=== PATIENT | female | born 1975 | race Caucasian/White ===

== ENCOUNTER 2019-09-15 07:44 | Outpatient (CLI) | payer BC, SELFPAY ==
--- NOTE | ~2019-09-15 | XR_ITS ---
EXAMINATION: XR chest 2V DATE: 09/15/2019 08:01 INDICATION: Encounter for screening for respiratory tuberculosis TECHNIQUE: PA and lateral views of the chest are obtained. COMPARISON: None available FINDINGS: The lungs are free of acute opacities. There is no pleural effusion or pneumothorax. The ca rdiomediastinal silhouette is normal. The visualized bones and soft tissues are unremarkable. IMPRESSION: 1. No acute cardiopulmonary abnormality. Reviewed, dictated and finalized at location A.
== END 2019-09-15 07:45 | disposition home or self-care (01) ==
PROVIDERS: PCP Family Medicine; Visit Provider Family Medicine
DX: Z11.1 Encounter for screening for respiratory tuberculosis (principal)
CPT/HCPCS: 71046

== ENCOUNTER 2019-10-20 10:47 | Emergency (ER) | payer BC, SELFPAY ==
--- NOTE | ~2019-10-20 | XR_ITS ---
XR_[id number]_CR DATE: 10/20/2019 11:36 INDICATION: Neck pain; vacuum parts cleaner fell on neck last night. TECHNIQUE: AP, open-mouth, lateral views COMPARISON: None FINDINGS: There is reversal of cervical curvature. There is approximately 1 mm anterolisthesis at C5-6. No fracture or dislocation or locked facet or prevertebral soft tissue swelling. The cervical intersp aces are preserved. IMPRESSION: Reversal of cervical curvature. Approximately 1 mm anterolisthesis at C5-6 Reviewed, dictated and finalized at Location A. Reviewed, dictated and finalized at location A.
[2019-10-20 10:56] VITALS: BP 141/70; PULSE 100; RESP 20; TEMP 36.6; O2SAT 100
--- NOTE | 2019-10-20 11:11 | ED.GENADULT ---
HPI - General Adult General Chief complaint: Neck Pain/Injury Stated complaint: neck injury Time Seen by Provider: 10/20/19 11:11 Source: patient and RN notes reviewed Mode of arrival: ambulatory Limitations: no limitations History of Present Illness HPI narrative: 43-year-old female presents with complaints of mid-posterior neck for 1 day. Ashley says she was on the floor vacuuming when the vacuum fell on top of her hitting her upper back and neck. 60mg of injectable Tordayl on 10/19/19, 800mg of Advil this morning at 06:00 and 2,000mg of ES Tylenol this morning at 10:00 without relief. Says she called her PMD and was instructed to seek care at Urgent Care. No headache or numbness or weakness in the arms/upper extremities. Denies numbness or tingling. Denies pain with movement of shoulder. Pain radiates from mid-posterior neck to upper-mid back. No loss of mobility. No swelling. Relieving factor is rest. The dominant hand is the RIGHT HAND. LMP hysterectomy. The patient reports she have not been diagnosed with COVID-19. The patient reports she is not waiting for the results of a COVID-19 lab test. The patient reports she do not have fever, chills, weakness, or fatigue. The patient reports she do not have a new or worsening cough or shortness of breath. Denies chest pain. The patient reports she do not have any rhinorrhea, congestion, sore throat, nausea, vomiting, abdominal pain, and diarrhea. Tolerating po intake well. Denies recent traveling. Denies concerns for COVID-19 or exposures been home with limited outdoor exposure except for essential household needs, work, and return home. At this time, patient is not suspected of having COVID-19. Some parts of this dictation were generated by voice recognition software and may contain typographical and/or grammatical inaccuracies. Related Data Home Medications Medication Instructions Recorded Confirmed alprazolam 1 mg tablet 1 mg PO TID PRN 01/27/19 10/20/19 cholecalciferol (vitamin D3) 25 1,000 unit PO DAILY 06/22/19 10/20/19 mcg (1,000 unit) capsule ketorolac 60 mg/2 mL intramuscular 60 mg IM ONCE PRN 04/28/20 08/11/20 solution aripiprazole 15 mg tablet 15 mg PO . q.h.s. tablet 09/01/19 10/20/19 clonazepam 1 mg tablet 1 mg PO . q.h.s. PRN tablet 09/01/19 10/20/19 duloxetine 30 mg capsule,delayed 30 mg PO . each noon cap 09/01/19 10/20/19 release bupropion HCl 150 mg PO DAILY 10/20/19 10/20/19 Allergies Allergy/AdvReac Type Severity Reaction Status Date / Time erythromycin base Allergy Unknown Hives Verified 12/03/18 13:32 MACROLIDES Allergy Unknown Uncoded 06/23/08 12:36 Review of Systems Review of Systems: Narrative: CONSTITUTIONAL: Denies fever, chills, sweats. EYES: Denies visual changes, redness, discharge. ENT: Denies rhinorrhea, congestion, sore throat, otalgia. CARDIOVASCULAR: Denies chest pain, palpitations, edema. RESPIRATORY: Denies dyspnea, wheezing, cough. GASTROINTESTINAL: Denies abdominal pain, nausea, vomiting, diarrhea. GENITOURINARY: Denies dysuria, hematuria, abnormal discharge SKIN: Denies rash or itching. MUSCULOSKELETAL: Denies acute back pain or myalgia. Complains of mid-posterior neck pain. NEUROLOGIC: Denies numbness, or focal weakness. PSYCHIATRIC: Denies anxiety or depression. All other systems reviewed are negative except as documented in HPI and below. [facility] Past Medical History Medical History (Updated 10/20/19 @ 11:39 by NATHAN Angeles) delivery delivered Chronic anxiety Chronic depression Chronic fatigue syndrome Chronic right hip pain Iron deficiency anemia, unspecified Migraine with aura, not intractable, without status migrainosus Nausea Other chronic pain Screening for tuberculosis UTI (urinary tract infection) Surgical History Surgical History (Updated 10/20/19 @ 11:39 by NATHAN Angeles) H/O section X3 History of cholecystectomy History of hysterectomy History
== END 2019-10-20 11:49 | disposition home or self-care (01) ==
PROVIDERS: Emergency Provider Nurse Practitioner Family; PCP Family Medicine
DX: S13.9XXA Sprain of joints and ligaments of unspecified parts of neck, initial encounter (principal); W20.8XXA Other cause of strike by thrown, projected or falling object, initial encounter; F41.9 Anxiety disorder, unspecified
CPT/HCPCS: 72040; 99213; G0463

== ENCOUNTER 2019-12-05 08:22 | Emergency (ER) | payer BC, SELFPAY ==
--- NOTE | ~2019-12-05 | CT_ITS ---
EXAMINATION: CT BRAIN W/O DATE: 12/05/2019 09:40 INDICATION: Seizure. Patient found unresponsive. TECHNIQUE: Computed tomography (CT) of the head was performed without intravenous contrast. The dose- length product was 605.33 mGy-cm. Automated exposure control and iterative reconstruction technique w ere employed. COMPARISON: No prior studies for comparison. FINDINGS: Normal brain parenchymal volume for age. Normal -white differentiation. There is a smal l subarachnoid hemorrhage at the right parietal vertex. No ventriculomegaly or midline shift. There i s a right parietal scalp hematoma. No ventriculomegaly or midline shift. Midline sagittal images demonstrate a normal corpus callosum, c raniovertebral junction and sella turcica. Basilar cisterns are patent. Paranasal sinuses and mastoids are pneumatized. No depressed skull fractures. IMPRESSION: 1. Small subarachnoid hemorrhage right parietal vertex. Dr. Jenkins discussed with Dr. Fili Bah MD at 12/05/2019 09:55 CDT. Reviewed, dictated and finalized at location A.
[2019-12-05 08:28] VITALS: BP 131/86; PULSE 93; RESP 20; TEMP 36.4; O2SAT 99
--- NOTE | 2019-12-05 08:36 | ECG_ITS ---
Measurements Intervals [place] Rate: 90 P: 28 NH: 133 QRS: 17 QRSD: 90 T: 15 QT: 362 QTc: 444 Interpretive Statements SINUS RHYTHM VENTRICULAR PREMATURE COMPLEX BASELINE ARTIFACT- I, II, III, AVR, AVL, AVF, V1 BORDERLINE ECG Electronically Signed On 12-05-2019 10:53:12 CDT by Jt De Leon D.O.
--- NOTE | 2019-12-05 08:48 | ED.GENADULT ---
HPI - General Adult General Chief complaint: Unspecified Stated complaint: found unresponsive Time Seen by Provider: 12/05/19 08:37 Source: patient Mode of arrival: EMS Limitations: no limitations History of Present Illness HPI narrative: Patient is a 43-year-old female who was brought in by EMS secondary to syncope/seizure. Patient states she has history of gastric bypass and hypoglycemia due to it, so every time her blood sugar goes down she has had a seizure. Patient states that she is only had 2 seizures for the past 2 years and was attributed to hypoglycemia. Patient does not take anything for seizure since is only attributed to hypoglycemia due to her gastric bypass. Patient is back to baseline and has no complaints. Patient denies headache dizziness neck pain chest pain abdominal pain back pain nausea vomiting diarrhea or fever. Patient denies any visual or speech disturbance, weakness, numbness, unsteady gait. Related Data Home Medications Medication Instructions Recorded Confirmed alprazolam 1 mg tablet 1 mg PO TID PRN 01/27/19 10/20/19 cholecalciferol (vitamin D3) 25 1,000 unit PO DAILY 06/22/19 10/20/19 mcg (1,000 unit) capsule ketorolac 60 mg/2 mL intramuscular 60 mg IM ONCE PRN 07/07/19 10/20/19 solution aripiprazole 15 mg tablet 15 mg PO . q.h.s. tablet 09/01/19 10/20/19 clonazepam 1 mg tablet 1 mg PO . q.h.s. PRN tablet 09/01/19 10/20/19 duloxetine 30 mg capsule,delayed 30 mg PO . each noon cap 09/01/19 10/20/19 release bupropion HCl 150 mg PO DAILY 10/20/19 10/20/19 Allergies Allergy/AdvReac Type Severity Reaction Status Date / Time erythromycin base Allergy Unknown Hives Verified 12/05/19 08:38 Macrolide Antibiotics Allergy Unknown Verified 12/05/19 10:49 Review of Systems Review of Systems: All systems reviewed & are unremarkable except as noted in HPI and below Constitutional: Constitutional: Denies body ache(s), Denies chills, Denies excessive sweating, Denies fatigue, Denies fever(s), Denies headache(s), Denies lethargy, Denies malaise, Denies weakness and Denies weight loss Eyes: Eyes: Denies blurry vision, Denies change in vision and Denies loss of vision ENT: Denies dizziness, Denies ear discharge, Denies headache(s), Denies lip swelling, Denies epistaxis, Denies nasal congestion, Denies neck pain, Denies throat swelling and Denies tongue swelling Cardiovascular: Cardiovascular: Denies chest pain, Denies chest pain at rest, Denies chest pain with activity, Denies diaphoresis, Denies rapid heart rate, Denies edema, Denies irregular heart rhythm, Denies lightheadedness, Denies palpitations, Denies dyspnea and Denies dyspnea on exertion Respiratory: Respiratory: Denies chest congestion, Denies cough, Denies hemoptysis, Denies dyspnea and Denies dyspnea on exertion Gastrointestinal: Gastrointestinal: Denies abdominal pain, Denies melena, Denies hematochezia, Denies diarrhea, Denies nausea, Denies vomiting and Denies hematemesis Musculoskeletal: Musculoskeletal: Denies abnormal gait, Denies deformity, Denies joint swelling, Denies limited range of motion, Denies neck pain and Denies numbness Neurologic: Denies Abnormal speech present, Denies abnormal gait, Denies confusion, Denies dizziness, Denies headache(s), Denies focal weakness, Denies loss of vision, Denies numbness, Denies Other visual disturbances, Denies Sensory deficit (Neuro) and Denies weakness Psychiatric: Psychiatric: Denies confusion, Denies depression, Denies auditory hallucinations, Denies homicidal ideation and Denies suicidal ideation Endocrine: Endocrine: Denies cold intolerance, Denies excessive sweating, Denies fatigue, Denies heat intolerance and Denies palpitations Hematologic/Lymphatic: Hematologic/Lymphatic: Denies easy bleeding and Denies easy bruising Allergic/Immunologic: Allergic/Immunologic: Denies lip swelling, Denies throat swelling and Denies tongue swelling PMF Past Medical History Medical History (Updated
[2019-12-05 09:08] LABS: Basophils Absolute Auto 0.1 K/mm3 (0.0-0.1); Basophils Percent Auto 0.8 % (0.2-1.2); Eosinophils Absolute Auto 0.3 K/mm3 (0-0.3); Eosinophils Percent Auto 3.4 % (0-4.4); Hematocrit 36.6 % (37.0-47.0); Hemoglobin 11.5 g/dL (12.0-15.0); Immature Granulocyte Absolute 0.04 K/mm3 (0.00-0.031); Immature Granulocyte Percent A 0.5 % (0-0.5); Lymphocytes Absolute Auto 1.58 K/mm3 (0.9-3.2); Lymphocytes Percent Auto 18.4 % (18.3-44.2); Mean Corpuscular HGB Conc 31.4 g/dl (32-36); Mean Corpuscular Hemoglobin 30.3 pg (26-34); Mean Corpuscular Volume 96.6 fl (80-100); Mean Platelet Volume 9.3 fl (7.4-10.4); Monocytes Absolute Auto 0.5 K/mm3 (0.1-0.6); Monocytes Percent Auto 5.7 % (2.6-8.5); Neutrophils Absolute Auto 6.1 K/mm3 (1.3-6.7); Neutrophils Percent Auto 71.2 % (45.5-73.1); Platelet Count Result 346 k/mm3 (150-375); Red Blood Count 3.79 M/mm3 (4.2-5.4); Red Cell Distribution Width 13.1 % (11.5-14.5); White Blood Count 8.6 K/mm3 (4.5-10.0)
[2019-12-05 09:30] VITALS: BP 111/91; PULSE 74; RESP 20; O2SAT 100
[2019-12-05 09:35] LABS: Troponin I < 0.012 ng/mL (0.000-0.034)
[2019-12-05 09:47] LABS: Anion Gap 4 mmol/L (8-16); Blood Urea Nitrogen 10 mg/dL (7-17); Calcium 8.7 mg/dL (8.4-10.2); Carbon Dioxide 25 mmol/L (22-30); Chloride 108 mmol/L (98-107); Estimated CRCL calculation 103 ml/min; Estimated Glomerular Filt Rate > 60; Glucose 67 mg/dL (65-105); Potassium 4.2 mmol/L (3.4-5.0); Sodium 137 mmol/L (137-145)
[2019-12-05 09:57] VITALS: BP 122/79; PULSE 77; RESP 20; O2SAT 100
--- NOTE | 2019-12-05 10:47 | PC.NURSE ---
C-collar applied at this time per Dr. Bah orders. Pt tolerated well.
[2019-12-05 10:54] VITALS: BP 124/86; PULSE 98; RESP 20; O2SAT 100
--- NOTE | 2019-12-05 11:00 | PC.NURSE ---
REPORT GIVEN TO VIVIAN HERNANDES AT [facility]
--- NOTE | 2019-12-05 11:05 | PC.NURSE ---
[facility] declined transfer [facility] accepted ETA 45min Trip # [id number]
[2019-12-05] MEDS: HYDROmorphone HCL INJ (*CRX) 1 MG/ML SYR 0.5 MG IV PUSH (11:12)
[2019-12-05] MEDS: ONDANSETRON INJ 4 MG/2 ML VIAL IV PUSH (11:12)
[2019-12-05 11:16] VITALS: BP 116/80; PULSE 89; RESP 20; O2SAT 100
[2019-12-05 11:19] VITALS: BP 116/80; PULSE 79; RESP 20; O2SAT 100
== END 2019-12-05 11:32 | disposition short-term general hospital (02) ==
PROVIDERS: Emergency Provider Emergency Medicine; PCP Family Medicine
DX: I60.9 Nontraumatic subarachnoid hemorrhage, unspecified (principal); R56.9 Unspecified convulsions; Z98.84 Bariatric surgery status; F41.9 Anxiety disorder, unspecified; F32.9 Major depressive disorder, single episode, unspecified; R53.82 Chronic fatigue, unspecified; Z87.440 Personal history of urinary (tract) infections; Z87.891 Personal history of nicotine dependence
CPT/HCPCS: 36415; 70450; 80048; 84484; 85025; 93005; 96374; 96375; 99285; J1170; J2405

== ENCOUNTER 2020-08-16 07:26 | Outpatient (CLI) | payer BC, SELFPAY ==
--- NOTE | 2020-08-16 | ECHO_ITS ---
Patient Info Name: Ashley Sosa Age: 44 years : 1975 Gender: Female Ht: 64 in Wt: 220 lbs BSA: 2.17 m2 HR: 69 bpm Heart Rhythm: Sinus Rhythm Exam Date: 08/16/2020 9:50 AM Exam Location: [facility] Patient Status: Outpatient Admit Date: 08/16/2020 Staff Ordering Physician: Rashida Decker APRN Residential Insurance Inspector: ZOIE Attending Provider: Rashida Decker APRN Exam Type: CA echo doppler color flow Study Info Complete two-dimensional, color flow and Doppler transthoracic echocardiogram is performed. Summary 1. Complete two-dimensional, color flow and Doppler transthoracic echocardiogram is performed. 2. Left ventricular chamber dimension is normal. 3. Left ventricular systolic function is normal, estimated at 60-65%. 4. The left ventricular diastolic function is normal. 5. E/e' 7 is not elevated. 6. No pulmonary hypertension, estimated pulmonary arterial systolic pressure is 27 mmHg. 7. There is trace pulmonic regurgitation. Left Ventricle E/e' 7 is not elevated. Left ventricular chamber dimension is normal. Left ventricular systolic function is normal, estimated at 60-65%. The left ventricular diastolic function is normal. Right Ventricle Right ventricular chamber dimension is normal. Right ventricular systolic function is normal. Left Atria Left atrial chamber dimension is normal. Right Atria Right atrial chamber dimension is normal. Aortic Valve The aortic valve is trileaflet. There is no aortic valve stenosis. There is no aortic valve regurgitation. Pulmonic Valve There is trace pulmonic regurgitation. Mitral Valve There is no mitral valve stenosis. There is no mitral valve regurgitation. Tricuspid Valve There is no tricuspid valve regurgitation. No pulmonary hypertension, estimated pulmonary arterial systolic pressure is 27 mmHg. Pericardium/Pleural There is no pericardial effusion. Inferior Vena Cava Normal inferior vena cava with >50% collapse upon inspiration consistent with normal right atrial pressure, 5 mmHg. Aorta The aortic root size at the sinus of Valsalva is normal. Left Ventricular Outflow Tract Name Value Normal LVOT 2D LVOT Diameter 2.3 cm LVOT Doppler LVOT Peak Gradient 4 mmHg LVOT Mean Gradient 2 mmHg LVOT VTI 22 cm LVOT VTI/AV VTI Ratio 0.8 LVOT Stroke Volume 91 ml LVOT CO 18.3 l/min LVOT CI 8.5 l/min/m2 Pulmonic Valve Name Value Normal PV Doppler PV Peak Gradient 3 mmHg PV Regurgitation Doppler WV Peak End Diastolic Velocity 123 cm/s M
== END 2020-08-16 07:27 | disposition home or self-care (01) ==
PROVIDERS: PCP Family Medicine
DX: R94.31 Abnormal electrocardiogram [ECG] [EKG] (principal)
CPT/HCPCS: 93306

== ENCOUNTER 2020-10-04 12:51 | Outpatient (CLI) | payer BC, SELFPAY ==
--- NOTE | ~2020-10-04 | XR_ITS ---
EXAMINATION: XR chest 1V 10/04/2020 13:08 INDICATION: Screening for tuberculosis PROCEDURE: 2 view chest COMPARISON: 09/15/2019 FINDINGS: The lungs are clear. The cardiomediastinal silhouette is within normal limits. There are no pleural effusions. There is no pneumothorax suspected. IMPRESSION: 1: NO ACUTE CARDIOPULMONARY DISEASE. Reviewed, dictated and finalized at location A.
== END 2020-10-04 12:52 | disposition home or self-care (01) ==
PROVIDERS: PCP Family Medicine; Visit Provider Nurse Practitioner Family
DX: Z11.1 Encounter for screening for respiratory tuberculosis (principal)
CPT/HCPCS: 71045

== ENCOUNTER 2021-10-10 10:51 | Outpatient (CLI) | payer BC, SELFPAY ==
--- NOTE | ~2021-10-10 | XR_ITS ---
EXAMINATION: XR chest 1V 10/10/2021 11:09 INDICATION: Positive skin TB test. PROCEDURE: AP portable chest COMPARISON: 10/04/2020 FINDINGS: The lungs are clear. The cardiomediastinal silhouette is within normal limits. There are no pleural effusions. There is no pneumothorax suspected. IMPRESSION: 1: NO ACUTE CARDIOPULMONARY DISEASE. Reviewed, dictated and finalized at location A.
== END 2021-10-10 10:52 | disposition home or self-care (01) ==
LOC: ANHIMG 10:55
PROVIDERS: PCP Family Medicine; Visit Provider Nurse Practitioner Family
DX: Z11.1 Encounter for screening for respiratory tuberculosis (principal)
CPT/HCPCS: 71045

== ENCOUNTER → 2021-10-16 14:49 | Outpatient (CLI) | payer OTHER, BC, SELFPAY ==
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
== END ==
PROVIDERS: PCP Nurse Practitioner Family; Visit Provider Nurse Practitioner Family
DX: M25.551 Pain in right hip (principal)
CPT/HCPCS: 73502

== ENCOUNTER 2021-12-27 14:41 | Emergency (ER) | payer BC, SELFPAY ==
--- NOTE | ~2021-12-27 | XR_ITS ---
EXAMINATION: XR chest 2V DATE: 12/27/2021 15:23 INDICATION: Persistent cough TECHNIQUE: PA and lateral views of the chest are obtained. COMPARISON: 10/10/2021 FINDINGS: The lungs are free of acute opacities. No pleural effusion or pneumothorax. The cardiomedia stinal silhouette is normal. The visualized bones and soft tissues are unremarkable. IMPRESSION: 1. No acute cardiopulmonary abnormality. Reviewed, dictated and finalized at location A.
[2021-12-27 14:48] VITALS: BP 131/87; PULSE 97; RESP 17; TEMP 37; O2SAT 99
--- NOTE | 2021-12-27 14:59 | ED.URI ---
HPI - URI/Sore Throat General Chief Complaint: Upper Respiratory Infection Stated Complaint: Cough,Headache,Wheezing,Sore Throat Time Seen by Provider: 12/27/21 15:01 Source: patient, RN notes reviewed and old records reviewed Mode of arrival: ambulatory Limitations: no limitations History of Present Illness HPI Narrative: 46 year old female who presents to [facility] care with complaints of cough with some shortness of breath, throat feels raw,headache and chills. Patient reports that she had COVID 3 weeks ago and she did take Paxlovid and seemed to get better. Patient reports that she developed bronchitis and was placed on inhaler and Cefdinir about 10 days ago and she reports that she is still having cough with some wheezing if she gets to coughing hard. Patient states that she called her doctor and was told to come have flu and strep swabs done. Patient reports that she had fever of 102 F yesterday and took Tylenol, no fever noted today. Patient reports that she has been taking some Sudafed but not taking any antihistamines. MD elicited complaint: cough, sore throat and other (headache and chills) Pertinent past history: other (COVID 3 weeks ago.) Pain scale (0-10): 8 Treatments prior to arrival: acetaminophen, antibiotics (cefdinir has been on for 10 days one dose remains) and other (albuterol inhaler) Related Data Home Medications Medication Instructions Recorded Confirmed alprazolam 1 mg tablet (Xanax) 1 mg PO TID PRN anxiety 01/27/19 10/16/21 clonazepam 1 mg tablet (Klonopin) 1 mg PO . q.h.s. PRN insomnia 09/01/19 10/16/21 duloxetine 30 mg capsule,delayed 30 mg PO . each noon 09/01/19 10/16/21 release (Cymbalta) bupropion HCl 150 mg 24 hr tablet, 150 mg PO DAILY 10/20/19 10/16/21 extended release blood-glucose meter (OneTouch #1 ea 12/10/19 10/16/21 Verio Flex Meter) lancets 33 gauge (OneTouch Delica #100 ea 12/10/19 10/16/21 Plus Lancet) acarbose 25 mg tablet 25 mg PO TID 12/23/19 10/16/21 flash glucose sensor (FreeStyle #1 ea 02/23/20 10/16/21 Roseann 14 Day Sensor kit) aripiprazole 15 mg tablet (Abilify) 22.5 mg PO . q.h.s. 04/27/21 10/16/21 hyoscyamine sulfate 0.125 mg 0.125 mg PO QID PRN abdominal pain 07/26/21 10/16/21 tablet (Levsin) memantine [Namenda] PO 10/16/21 10/16/21 Allergies Allergy/AdvReac Type Severity Reaction Status Date / Time erythromycin base Allergy Unknown Hives Verified 12/27/21 15:00 Macrolide Antibiotics Allergy Unknown Shortness Verified 12/27/21 15:00 of breath Review of Systems Review of Systems: CONSTITUTIONAL: reports malaise, chills, sweats, or fever. EYES: Denies visual changes, redness, or discharge. ENT: Reports rhinorrhea, congestion, sinus pain, no otalgia and positive for sore throat. CARDIOVASCULAR: Denies chest pain, palpitations, or edema. RESPIRATORY: Reports cough.? with some reported dyspnea when coughing hard. GASTROINTESTINAL: Denies abdominal pain, nausea, vomiting, diarrhea SKIN: Denies rash or itching. MUSCULOSKELETAL: Denies myalgia. NEUROLOGIC: Denies headache. 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 Chronic fatigue syndrome Chronic low back pain without sciatica Chronic neck pain Chronic right hip pain COVID-19 (12/08/21) vaccinated with positive test 12/10/2021 Fall Hypoglycemia Insulin resistance Iron deficiency anemia, unspecified Iron 24 with 6% saturation and ferritin of 3 on 04/27/2021 with hemoglobin 10.9, followed by [facility] department with iron infusions. Knee pain, right Migraine with aura, not intractable, without status migrainosus Nausea Obesity (BMI 30.0-34.9) Other chronic pain Postconcussion syndrome Right hip pain
== END 2021-12-27 15:40 | disposition home or self-care (01) ==
PROVIDERS: Emergency Provider Registered Nurse; PCP Nurse Practitioner Family
DX: J06.9 Acute upper respiratory infection, unspecified (principal); Z87.891 Personal history of nicotine dependence; F41.9 Anxiety disorder, unspecified; F32.A Depression, unspecified; Z98.84 Bariatric surgery status; Z86.16 Personal history of COVID-19
CPT/HCPCS: 71046; 87081; 87804; 87880; 99213; G0463

== ENCOUNTER 2022-10-29 08:53 | Outpatient (CLI) | payer BC, SELFPAY ==
--- NOTE | ~2022-10-29 | XR_ITS ---
EXAMINATION: XR chest 2V DATE: 10/29/2022 09:16 INDICATION: Encounter for screening for respiratory tuberculosis TECHNIQUE: PA view of the chest is obtained. COMPARISON: 12/27/2021 FINDINGS: The lungs are free of acute opacities. No pleural effusion or pneumothorax. The cardiomedia stinal silhouette is normal. A calcified nodule of the left midlung zone is consistent with old granu lomatous disease. IMPRESSION: 1. No acute cardiopulmonary abnormality. Reviewed, dictated and finalized at location A.
== END 2022-10-29 08:54 | disposition home or self-care (01) ==
PROVIDERS: PCP Family Medicine; Visit Provider Nurse Practitioner Family
DX: Z11.1 Encounter for screening for respiratory tuberculosis (principal)
CPT/HCPCS: 71046

== ENCOUNTER 2022-12-10 06:56 | Outpatient (CLI) | payer BC, SELFPAY ==
--- NOTE | ~2022-12-10 | XR_ITS ---
XR thoracic spine 3V DATE: 12/10/2022 07:11 INDICATION: Lower thoracic spine pain following fall TECHNIQUE: AP, lateral and swimmer views COMPARISON: None FINDINGS: There is mild thoracic dextroscoliosis. No fracture or dislocation or bone destruction is detected. The thoracic pedicles are intact. Thoraci c interspaces are preserved. No paraspinal soft tissue thickening. Radiopaque sutures overlie the superior medial left upper quadrant of the abdomen. IMPRESSION: Mild thoracic dextroscoliosis Reviewed, dictated and finalized at location B.
== END 2022-12-10 06:57 | disposition home or self-care (01) ==
LOC: ANHIMG 06:58
PROVIDERS: PCP Family Medicine; Visit Provider Nurse Practitioner Family
DX: M54.6 Pain in thoracic spine (principal)
CPT/HCPCS: 72072

== ENCOUNTER 2022-12-22 12:34 | Outpatient (CLI) | payer BC, SELFPAY ==
--- NOTE | ~2022-12-22 | MR_ITS ---
EXAMINATION: MR thoracic spine wo con DATE: 12/22/2022 13:44 INDICATION: Thoracolumbar radiculopathy with back pain and right leg pain TECHNIQUE: Magnetic resonance imaging (MRI) of the thoracic spine was performed without intravenous c ontrast. Sagittal localizer T1-weighted FSE of the cervicothoracic spine was obtained. Thoracic spine sequences included sagittal T2-weighted FSE, sagittal T1-weighted SE, Sagittal T2-weighted FS FSE, a nd axial T2-weighted FSE. COMPARISON: Thoracic spine radiographs dated 12/10/2022 FINDINGS: 15 degrees thoracic dextroscoliosis. Sagittal alignment is normal. Vertebral body heights are normal . Normal marrow signal.Mild disc height loss with annular fissure and disc bulges resulting in mild c entral canal stenosis at C6-C7. Mild disc height loss at T1-T2 through T8-T9. The thoracic discs do n ot extend beyond the endplate margins with no central canal stenosis in the thoracic spine. There is normal spinal cord signal. The conus terminates at L1. Bilateral multilevel moderate to severe facet osteoarthritis bilaterally in the mid to upper thoracic spine with mild to moderate facet osteoarthri tis in the lower thoracic spine. This contributes to bilateral multilevel neural foraminal stenosis, moderate on the left at T4-T5 and T8-T9 and on the right at T1-T2 through T3-T4. Mild neural from rod nosis at many of the remaining levels on both the left and right. IMPRESSION: 1. 15 degrees thoracic scoliosis with mild spondylosis. Reviewed, dictated and finalized at location A.
== END 2022-12-22 12:35 | disposition home or self-care (01) ==
PROVIDERS: PCP Family Medicine; Visit Provider Anesthesiology
DX: M41.9 Scoliosis, unspecified (principal); M47.25 Other spondylosis with radiculopathy, thoracolumbar region
CPT/HCPCS: 72146

== ENCOUNTER 2023-06-12 09:21 | Outpatient (CLI) | payer BC, SELFPAY ==
--- NOTE | ~2023-06-12 | CT_ITS ---
EXAMINATION: CT abdomen pelvis wo con DATE: 06/12/2023 09:42 INDICATION: Dysuria. Low abdominal pain. Low back pain. TECHNIQUE: Computed tomography (CT) of the abdomen and pelvis was performed without intravenous contr ast. Automated exposure control and iterative reconstruction technique were employed. The dose-length product was 469.45 mGy-cm. COMPARISON: None. FINDINGS: The visualized portions of the lung bases demonstrate a 6 mm nodule in right middle lobe. T here is a 6 mm part solid nodule in left lower lobe. Calcified left hilar lymph nodes are consistent with old granulomatous disease. No pleural effusion. The heart size is normal. No pericardial effusio n. The liver is normal. There are changes of cholecystectomy. There are surgical changes of the stoma ch. The spleen, pancreas, adrenal glands, and right kidney are normal. There is cortical thinning of left kidney. There is a 2 mm stone in left kidney. There are no dilated loops of bowel. The appendix is normal. There are no pathologically enlarged lymph nodes. There is no free intraperitoneal fluid. There are surgical clips in the abdominal wall. There are chronic bilateral L5 pars defects. There is 6 mm anterolisthesis of L5 on S1. There is severe lower lumbar spondylosis. There is mild thoracic s pondylosis. IMPRESSION: 1. Pulmonary nodules measuring up to 6 mm, probably benign. Consider noncontrast low-dose chest CT in 6-12 months. 2. Small nonobstructing left kidney stone. Reviewed, dictated and finalized at location A. IMPRESSION: 1. Pulmonary nodules measuring up to 6 mm, probably benign. Consider noncontras t low-dose chest CT in 6-12 months. 2. Small nonobstructing left kidney stone.
== END 2023-06-12 09:22 | disposition home or self-care (01) ==
PROVIDERS: PCP Family Medicine; Visit Provider Family Medicine
DX: R10.9 Unspecified abdominal pain (principal); N20.0 Calculus of kidney
CPT/HCPCS: 74176

== ENCOUNTER 2023-07-03 06:48 | Outpatient (CLI) | payer BC, SELFPAY ==
--- NOTE | ~2023-07-03 | CT_ITS ---
CT Scan of the Chest without Contrast: Clinical Indication: Pulmonary nodule Technique: Contiguous sections were acquired throughout the chest without intravenous contrast. Dose reduction technique was used on this scan by utilizing automated exposure control and iterative recon struction technique. The dose-length product (DLP) was 65.01 mGy-cm. Findings: There is no evidence of any significant mediastinal, hilar or axillary lymphadenopathy. Calcified lef t hilar lymph nodes are present. The mediastinal soft tissues appear normal. There is no evidence of pleural or pericardial effusion. Calcified left lower lobe granuloma present. Right middle lobe nodules decreased, now measuring 2 mm (axial image 61). Images through the upper abdomen reveal evidence of prior bariatric surgery. Impression: Significant interval decrease of right middle lobe nodule since prior exam, compatible with resolving focal infectious/inflammatory process. Evidence of prior granulomatous disease on the left side, as detailed above. Left lung nodule seen on prior exam probably represented partial visualization of calcified left lower lobe granuloma. [place] [facility] [place]ression: Significant interval decrease of right middle lobe nodule since prior exam, com patible with resolving focal infectious/inflammatory process. Evidence of prior granulomatous disease on the left side, as detailed above. Le ft lung nodule seen on prior exam probably represented partial visualization of calcified left lower lobe granuloma.
== END 2023-07-03 06:49 | disposition home or self-care (01) ==
PROVIDERS: PCP Family Medicine; Visit Provider Family Medicine
DX: R91.1 Solitary pulmonary nodule (principal)
CPT/HCPCS: 71250

== ENCOUNTER 2023-07-27 11:15 | Outpatient (CLI) | payer BC, SELFPAY ==
--- NOTE | ~2023-07-27 | MM_ITS ---
EXAMINATION: MM screening katherine BI w randa HISTORY: Screening mammogram TECHNIQUE: Craniocaudal and mediolateral oblique 3-D tomosynthesis images were obtained and synthetic 2-D images were generated. CAD analysis was submitted and interpreted. COMPARISON: No prior mammogram is available for comparison at this institution. BREAST PARENCHYMAL COMPOSITION:Dense: The breasts are heterogeneously dense, which may obscure small masses. FINDINGS: No suspicious mass, calcification, or architectural distortion are identified in either deborah ast to suggest malignancy. There has been no suspicious interval change. IMPRESSION: No mammographic evidence of malignancy. Recommend routine screening mammography in one year. BI-RADS Category 1: Negative Reviewed, dictated and finalized at location .
== END 2023-07-27 11:16 | disposition home or self-care (01) ==
PROVIDERS: PCP Family Medicine; Visit Provider Family Medicine
DX: Z12.31 Encounter for screening mammogram for malignant neoplasm of breast (principal)
CPT/HCPCS: 77063; 77067

== ENCOUNTER 2023-10-29 14:04 | Outpatient (CLI) | payer BC, SELFPAY ==
--- NOTE | ~2023-10-29 | XR_ITS ---
XR chest 2V Ordering provider: Jaiden Carrasco MD History: 47 years Female with . R06.02 - Shortness of breath CHEST TIGHTNESS X1 WK . Comparison: October 29, 2022 FINDINGS: MEDIASTINUM: The cardiac silhouette is not enlarged. LUNGS: No infiltrates, effusions or pneumothorax. OTHER: No free air under the diaphragm. IMPRESSION: No acute cardiopulmonary pathology. Reviewed, dictated and finalized at location A.
[2023-10-29 15:54] LABS: Rheumatoid Factor < 12.0 IU/ML (<12)
[2023-10-30 14:32] LABS: ANA Cascade Screen NEGATIVE (NEGATIVE)
[2023-10-30 14:54] LABS: CRP, High Sensitivity 0.7 mg/L
== END 2023-10-29 14:05 | disposition home or self-care (01) ==
LOC: ANHIMG 14:07
PROVIDERS: PCP Family Medicine; Visit Provider Nurse Practitioner Family
DX: R06.02 Shortness of breath (principal); L81.9 Disorder of pigmentation, unspecified; M25.50 Pain in unspecified joint; R23.3 Spontaneous ecchymoses; Z01.84 Encounter for antibody response examination
CPT/HCPCS: 36415; 71046; 86038; 86141; 86225; 86235; 86364; 86430; 86787

== ENCOUNTER 2024-03-24 14:37 | Outpatient (CLI) | payer BC, SELFPAY ==
--- NOTE | 2024-03-24 14:48 | ECHO_ITS ---
Patient Info Name: Ashley Sosa Age: 48 years : 1975 Gender: Female Ht: 65 in Wt: 160 lbs BSA: 1.84 m2 HR: 83 bpm BP: 118 / 91 mmHg Heart Rhythm: Sinus Rhythm Technical Quality: Good Exam Date: 03/24/2024 2:52 PM Exam Location: Echo Lab Patient Status: Outpatient Admit Date: 03/24/2024 Staff Ordering Physician: Jaiden Carrasco MD Powder Monkey: Krystina Riley RDCS Attending Provider: Jaiden Carrasco MD Referring Physician: Luna HOLBROOK; Exam Type: CA echo doppler color flow Study Info Indications R55 - Syncope and collapse Complete two-dimensional, color flow and Doppler transthoracic echocardiogram is performed. Summary 1. Complete two-dimensional, color flow and Doppler transthoracic echocardiogram is performed. 2. Left ventricular chamber dimension is normal. 3. Left ventricular systolic function is normal, estimated at 65-70%. 4. The left ventricular diastolic function is normal. 5. E/e' 9 is minimally elevated. 6. Left atrial chamber dimension is mildly enlarged. 7. There is trace mitral valve regurgitation. 8. No pulmonary hypertension, estimated pulmonary arterial systolic pressure is 24 mmHg. Left Ventricle E/e' 9 is minimally elevated. Left ventricular chamber dimension is normal. Left ventricular systolic function is normal, estimated at 65-70%. The left ventricular diastolic function is normal. Right Ventricle Right ventricular systolic function is normal and with normal TAPSE 2.0 cm. Right ventricular chamber dimension is normal. Left Atria Left atrial chamber dimension is mildly enlarged. Right Atria Right atrial chamber dimension is normal. Aortic Valve The aortic valve is trileaflet. There is no aortic valve stenosis. There is no aortic valve regurgitation. Pulmonic Valve There is no pulmonic regurgitation. Mitral Valve There is no mitral valve stenosis. There is trace mitral valve regurgitation. Tricuspid Valve There is no tricuspid valve regurgitation. No pulmonary hypertension, estimated pulmonary arterial systolic pressure is 24 mmHg. Pericardium/Pleural There is no pericardial effusion. Inferior Vena Cava Normal inferior vena cava with >50% collapse upon inspiration consistent with normal right atrial pressure, 5 mmHg. Aorta The aortic root size at the sinus of Valsalva is normal. Left Ventricular Outflow Tract Name Value Normal LVOT 2D LVOT Diameter 2.1 cm LVOT Doppler LVOT Peak Gradient 4 mmHg LVOT Mean Gradient 2 mmHg LVOT VTI 18 cm LVOT VTI/AV VTI Ratio 0.8 LVOT Stroke Volume 64 ml LVOT CO 5.4 l/min LVOT CI 2.9 l/min/m2 Pulmonic Valve Name Value Normal RVOT Doppler RVOT Peak Gradient 1 mmHg PV Doppler PV Peak Gradient 4 mmHg Mitral Valve Name Value Normal MV Doppler MV Decel [place] 568 cm/s2 MV PHT 47 ms MV Area (PHT) 4.7 cm2 4.0-5.0 MV Diastolic Function MV E Peak Velocity 92 cm/s MV A Peak Velocity 66 cm/s MV E/A 1.4 MV Decel Time 162 ms MV Annular TDI MV E/e' (Septal) 12.3 <=8.0 MV E/e' (Lateral) 6.8 <=8.0 MV E/e' (Average) 9.5 Tricuspid Valve Name Value Normal TV Regurgitation Doppler TR Peak Velocity 217 cm/s TR Peak Gradient 12 mmHg Estimated PAP/RSVP RA Pressure 5 mmHg <=5 PA Systolic Pressure 24 mmHg <36 RV Systolic Pressure 24 mmHg <36 Aorta Name Value Normal Ascending Aorta Ao Root Diameter (MM) 3.4 cm Ao Root Diam Index (MM) 1.9 cm/m2 Aortic Valve Name Value Normal AV Doppler AV Peak Velocity 119 cm/s AV Peak Gradient 6 mmHg AV Mean Gradient 3 mmHg AV VTI 22 cm AV Area (Cont Eq VTI) 2.9 cm2 >=3.0 AV Area (Cont Eq Rafy) 3.0 cm2 AV Regurgitation 2D LVOT Area 3.6 cm2 Ventricles Name Value Normal LV Dimensions 2D/MM IVS Diastolic Thickness (2D) 0.8 cm 0.6-1.0 LVID Diastole (2D) 4.3 cm 3.8-5.2 LVIW Diastolic Thickness (2D) 0.8 cm 0.6-0.9 LVID Systole (2D) 2.7 cm 2.2-3.5 LVOT Diameter 2.1 cm LV Mass (2D Cubed) 111.32 g 67.00-162.00 LV Mass Index (2D Cubed) 61 g/m2 43-95 Relative Wall Thickness (2D) 0.39 LV Fractional Shortening/Ejection Fraction 2D/MM LV Fractional Shortening (2D) 37 % 27-45 LV EF (2D Teichgoldenz) 68 % 54-74 LV Diastolic Volume (4C MOD) 67 ml LV EF (4C MOD) 66 % LV Diastolic Volume (2C MOD) 86 ml LV EF (2C MOD) 60 % LV Diastolic Volume (BP MOD) 79 ml 46-106 LV Diastolic Volume Index (BP MOD) 43 ml/m2 29-61 LV Systolic Volume (BP MOD) 29 ml 14-42 LV Systolic Volume Index (BP MOD) 16 ml/m2 8-24 LV EF (BP MOD) 64 % 54-74 LV Diastolic Length (4C) 7.2 cm LV Systolic Length (4C) 6.2 cm LV Stroke Volume (4C MOD) 44 ml Atria Name Value Normal LA Dimensions LA Dimension (MM) 3.9 cm 2.7-3.8 LA Volume (4C A-L) 63 ml LA Volume (BP A-L) 62 ml RA Dimensions RA Area (4C) 15.8 cm2 <=18.0 Report Signatures
== END 2024-03-24 14:38 | disposition home or self-care (01) ==
PROVIDERS: Visit Provider Family Medicine
DX: R55 Syncope and collapse (principal)
CPT/HCPCS: 93242; 93306

== ENCOUNTER 2024-08-27 08:01 | Outpatient (CLI) | payer BC, SELFPAY ==
--- NOTE | ~2024-08-27 | CT_ITS ---
Non-contrast CT scan of the Abdomen and Pelvis Clinical indication: Flank pain, dysuria Technique: 2.5 mm axial scans were obtained through the abdomen and pelvis without intravenous or or al contrast. Dose reduction technique was used on this scan by utilizing automated exposure control a nd iterative reconstruction technique. The dose-length product (DLP) was 488.71 mGy-cm. COMPARISON: 06/12/2023 Findings: Images through the lung bases reveal no abnormalities. There is no evidence of renal or ureteral calculi. The kidneys and the ureters are nondilated. The liver, spleen, pancreas, and adrenals appear normal. Gallbladder absent. There is no aortic aneur ysm. There is no evidence of bowel obstruction. Evidence of prior bariatric surgery noted. Extensive stool suggests constipation. Images through the pelvis were performed. There is no evidence of ascites or lymphadenopathy. Urinary bladder unremarkable. No pelvic mass seen. 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 Impression: No abnormality of the system identified. Constipation. Reviewed, dictated and finalized at [facility]. Impression: No abnormality of the system identified. Constipation.
== END 2024-08-27 08:02 | disposition home or self-care (01) ==
LOC: MICIMG 08:02
PROVIDERS: PCP Family Medicine; Visit Provider Family Medicine
DX: R10.9 Unspecified abdominal pain (principal); R82.994 Hypercalciuria
CPT/HCPCS: 74176

== ENCOUNTER → 2024-09-29 13:34 | Outpatient (CLI) | payer BC, SELFPAY ==
--- NOTE | ~2024-09-29 | XR_ITS ---
EXAM/ PROCEDURE: XR finger 2nd RT min 2V - 09/29/2024 13:35 CDT HISTORY: 48 years old Female with M25.541 - Pain in joints of right hand COMPARISON: None available TECHNIQUE: Four view(s) FINDINGS/ IMPRESSION: There are no fractures or dislocations.Joint space narrowing, subchondral sclerosis, subchondral cyst formation and osteophyte formation, compatible with mild osteoarthritis. Reviewed, dictated and finalized at location A.
--- OUTSIDE RECORDS SUMMARY | 2024-09-29 13:41 | XMS_ITS | Continuity of Care Document ---
Author Organization [facility] Address [address] [place] [address] [place] [address] Phone Care Team Providers Care Parimutuel Ticket Seller Name Role Phone Zeke Hussein DO Unavailable Unavailable Advance Directives Directive Yes / No Effective Date File Name No Information Encounters Encounter Description Practice Location Reason(s) For Visit Diagnoses Date Provider Providers Copied on Encounter [facility], [address] [place] [address] [address], [place], [place], [id number], [place] tel:[phone] [facility] No Information Keenan Johnston. [address] [place], [address], [place]. tel: [phone] Family History Family Member Type Diagnosis Age At Onset No Information Payers Payer name Insurance type Covered republican ID Authoriza tion(s) No Information Social History Type Description Quantity Date Captured Comments Sex Female Smoking Status No Information Chief Complaint And Reason For Visit No Information Reason For Referral Reason For Referral No Information History Of Present Illness Encounter Date Complaint History Of Prese nt Illness No Information Functional Status Date Functional Assessmen t No Information Instructions Date Instruction Additional Infor mation No Information Assessments Type Assessment Date No Information Patient Care Teams Name Effective Dates (start - stop) Status Members No Information
--- OUTSIDE RECORDS SUMMARY | 2024-09-29 13:41 | XMS_ITS | Continuity of Care Document ---
Author Name [facility] Address [address] [place] [address] Organization [facility] Care Team Providers Care Aged Or Disabled Carer Name Role Phone [facility] Unavailable Unavailable Allergies, Adverse Reactions, Alerts Substance Category Reaction Severity Reaction type Status Date Reported Comments Source erythromycin Assertion Rash, Difficulty breathing Drug allergy Active [facility] NSAIDS<sup>1 </sup> Assertion Drug allergy Active Patient Comment: S%2FP Gastric Bypass [facility]
--- OUTSIDE RECORDS SUMMARY | 2024-09-29 13:41 | XMS_ITS | Clinical Summary ---
Author Organization [facility] Address [address] [place] [id number] Care Team Providers Care Diesel Locomotive Crane Operator Name Role Phone Jaiden Carrasco MD Primary Care Provider [phone] Sergio Fair MD Unavailable Natalie Sanchez NP Unavailable [phone] Odalys De La Torre OD Unavailable [phone] Trey Duncan MD Unavailable Allergies Active Allergy Reactions Criticality Noted Date Comments Erythromycin Rash,Shortness of breath High 12/20/2016 Macrolide Antibiotics Shortness of breath High 05/08 Nsaids (Non-Steroidal Anti-Inflammatory Drug) Other (See comments),Unknown Low 12/20/2016 Reaction: Other Gastric Bypass Lasmiditan Agitation Low 05/11/2022 Medications ALPRAZolam (XANAX) 1 mg tablet Take 1 tablet (1 mg total) by mouth 3 (three) times a day 0 06/03/19 19 Active modafinil (PROVIGIL) 200 mg tablet 1 tablet (200 mg total) daily 0 03/17/19 20 Active syringe with needle, safety (BD Safety-Vince Detachable Needl) 3 mL 22 gauge x 1 1/2 syringe BD Safety-Vince Detachable Needle 3 mL 22 gauge x 1 1/2 syringe Active ketorolac (TORADOL) 60 mg/2 mL injection Inject into the muscle as instructed as needed Active DULoxetine DR (CYMBALTA) 60 mg capsule Take 1 capsule (60 mg total) by mouth 2 (two) times a day Active ondansetron (ZOFRAN) 4 mg tablet 07/02/19 22 Active syringe with needle 1 mL 27 x 1/2 syringe 1 each every 30 (thirty) days Use to administer B12 monthly 12 each 1 01/31/20 22 Active eptinezumab-jjmr (VYEPTI) Infuse 1 mL (100 mg total) into a venous catheter every 3 (three) months Active cholecalciferol (VITAMIN D-3) 50,000 unit capsule TAKE 1 CAPSULE BY MOUTH EVERY 2 WEEKS 05/31/19 23 Active cyanocobalamin (Vitamin B-12) 1,000 mcg/mL injectionIndicat ions:Vitamin B12 Deficiency Inject 1 mL (1,000 mcg total) into the muscle as instructed every 30 (thirty) days 3 mL 3 09/21/19 23 Active ZOLMitriptan (ZOMIG) 2.5 mg tabletIndication s:Migraine Take 1 tablet (2.5 mg total) by mouth once as needed for migraine May repeat in 2 hours if unresolved. Do not exceed 10 mg in 24 hours. 9 tablet 11 10/18/19 23 Active BD Luer-Vince Syringe 3 mL 23 x 1 syringe USE WITH TORADOL AND VITAMIN B12 12/20/19 23 Active lidocaine (LIDODERM) 5 % 1 PATCH TOPICALLY DAILY LEAVE ON MOST PAINFUL AREA FOR UP TO 12 HRS 12/30/19 24 Active folic acid (FOLVITE) 1 mg tablet Take 1 tablet (1,000 mcg total) by mouth daily 10/22/19 24 Active gabapentin (NEURONTIN) 600 mg tablet Take 1 tablet (600 mg total) by mouth 3 (three) times a day 02/25/20 24 Active HYDROcodone-acet aminophen (XODOL) 7.5-300 mg per tablet TAKE 1 TABLET BY MOUTH EVERY 8 HOURS NEEDED FOR PAIN. HOLD TRAMADOL WHILE TAKING THIS 02/26/20 24 Active sildenafiL, pulm.hypertensio n, (REVATIO) 20 mg tabletIndication s:Pulmonary Arterial Hypertension Take 1 tablet (20 mg total) by mouth 2 (two) times a day 60 tablet 2 03/20/19 25 Active eszopiclone (LUNESTA) 2 mg tablet TAKE 1 TABLET BY MOUTH EVERY DAY AT BEDTIME FOR SLEEP 05/28/19 Active Keppra 500 mg tablet every 12 hours Activ e tiZANidine (ZANAFLEX) 4 mg tablet TAKE 1/2-1 TABLET BY MOUTH 3 TIMES DAILY NEEDED FOR MUSCLE SPASMS 04/13/19 Active ARIPiprazole (ABILIFY) 20 mg tablet Take 1 tablet (20 mg total) by mouth daily Active estradioL (CLIMARA) 0.05 mg/24 hr APPLY 1 PATCH TRANSDERMALLY WEEKLY 09/03/19 25 Active Active Problems Problem Noted Date Diagnosed Date Bilateral occipital neuralgia 08/07/2023 Acquired spondylolisthesis 05/17/2022 Degeneration of lumbosacral intervertebral disc 05/17/2022 Low back pain 05/17/2022 Lumbar radiculopathy 05/17/2022 Right hip pain 05/17/2022 Trochanteric bursitis of right hip 05/17/2022 Refractive error 01/24/2022 Assessment & Plan (01/24/2022 3:49 PM EXECUTIVE COMPENSATION ANALYST): Update computer/near specs with 4BI prism (split). Educated on need to update. Will call with any new/worsening symptoms. Convergence insufficiency 01/24/2022 Assessment & Plan (01/24/2022 3:50 PM EXECUTIVE COMPENSATION ANALYST): Continue with small base-in prism (BI) prism at near. Abnormal eye movements 11/29/2021 Assessment & Plan (11/29/2021 7:20 AM CDT): Newly detected symptomatic eye movement abnormality of unclear chronicity and recent acuity changes in the setting of moderate TBI 2019, reported by her wheel tuner; not responsive to prism lenses MRI IAC Referral to Neuro-ophthalmology Will request her ophthalmology records Migraine without aura 07/18/2021 Assessment & Plan (11/29/2021 7:17 AM CDT): Partially controlled Discussed but hesitate to use ubrogepant due to chest pain with rimegepant Continue Botox; she will consider dose increase Start erenumab Start rizatriptan Start DHE nasal spray Continue Fioricet Continue zolmitriptan Consider frovatriptan, naratriptan Assessment & Plan (07/18/2021 9:13 AM CDT): Well controlled on current regimen Continue Botox Continue zolmitriptan B12 deficiency 05/31/2021 Iron deficiency anemia 05/30/2021 Breast lump 06/22/2020 Hypoglycemia 04/01/2020 Traumatic brain injury with loss of consciousnes s 03/21/2020 Post-traumatic headache 03/21/2020 Assessment & Plan (07/18/2021 9:27 AM CDT): Severe, disabling. Separate from migraines. Undifferentiated, and just shy of migraine criteria. 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 05/28/2015 Pseudoseizure Encounters Date Type Department Care Team Description 09/23/2024 7:53 AM CDT - 09/23/2024 11:59 PM CDT Hospital Encounter [facility] [address] [place] [address] Masha Jo MD Bilateral occipital neuralgia Discharge Disposition: Discharge to home or self care 09/18/2024 Telephone [facility] [address] [facility] [address] [place] [address] Masha Jo MD PMC Preprocedure 08/04/2024 9:30 AM CDT Office Visit [facility] [address] [place] [address] Maddy Penny NP Iron deficiency anemia, unspecified iron deficiency anemia type (Primary Dx); B12 deficiency 08/04/2024 9:00 AM CDT Lab [facility] [address] [place] [address] 08/04/2024 8:45 AM CDT Lab [facility] [address] [place] [address] Iron deficiency anemia, unspecified iron deficiency anemia type 08/04/2024 Orders Only [facility] [address] [place] [address] Dea Nails RN Iron deficiency anemia, unspecified iron deficiency anemia type (Primary Dx) from Last 3 Months Immunizations Immunization Administration Dates Next Due Flucelvax Influenza Quad 01/15/2017 Influenza, Quadrivalent, Janeth l Culture-based MDCK, Preservative Free, Antibiotic Free, Intramuscular 12/12/2019 Influenza, Quadrivalent, Spl it, Intramuscular 02/10/2016 Influenza, Quadrivalent, Spl it, Preservative Free, Intramuscular 12/04/2018,01/05/2018,01/04/2018 Influenza, Trivalent, High D ose, Split, Preservative Free, Intramuscular 12/04/2018 Surgical History Surgery Date Site/Laterality Comments NE DELIVERY ONLY Section - (Added by TW Conv) STOMACH SURGERY Gastric Surgery - (Added by TW Conv) FLUORO GUIDED ASPIRATION OR INJECTION INTERMEDIATE JOINT LEFT 07/31/2018 Left FLUORO GUIDED ASPIRATION OR INJECTION LARGE JOINT RIGHT 10/01/2018 Right HYSTERECTOMY SECTION CHOLECYSTECTOMY HERNIA REPAIR BARIATRIC SURGERY Medical History Medical History Date Comments Migraine without status migr ainosus, not intractable Migraine - (Added by TW Conv ) Personal history of other me ntal and behavioral disorders History of anxiety - (Added by TW Conv) Personal history of other me ntal and behavioral disorders History of depression - (Add ed by TW Conv) Vitamin D deficiency Vitamin B12 deficiency Anxiety Brain concussion Depression Hypoglycemia Raynaud's disease Raynaud's disease 06/2023 Epilepsy (HCC) Menopause Family History Medical History Relation Name Comments Hypertension Father Carlitos Family history of hypertension - (Added by TW Conv) Early Maternal Grandfather Blayne Depression Mother Tia Family history of depression - (Added by TW Conv) Hypertension Mother Tia Family history of hypertension - (Added by TW Conv) Stroke Paternal Grandfather Blayne Colon cancer Paternal Grandmother Depression Sister Analilia Family history of depression - (Added by TW Conv) Hypertension Sister Analilia Obesity Sister Analilia Relation Name Status Comments Father Carlitos Alive Maternal Grandfather Blayne Mother Tia Alive Paternal Grandfather Blayne Paternal Grandmother Sister Analilia Social History Tobacco Use Types Packs/Day Years Used Date Smoking Tobacco: Former Cigarettes Q uit: 07/18/2005 Passive Smoke Exposure: Past Smokeless Tobacco: Never Tobacco Cessation:Counseling Given: Not Answered Alcohol Use Standard Drinks/Week Comments Not Currently 0 (1 standard drink = 0.6 oz pur e alcohol) Social Connection and Isolat ion Panel [NHANES] Answer Date Recorded Frequency of Communication w ith Friends and Family More than three times a week 10/14/2018 Frequency of Social Gatherin gs with Friends and Family Once a week 10/14/2018 Attends Quaker Services Never 10/14 Active Member of Clubs or Organizations No 10/14/2018 Attends Club or Organization Meetings Never 10/14/2018 Marital Status 10/14/2018 AUDIT-C Answer Date Recorded Q1: How often do you have a drink containing alcohol? Never 09/23/2024 Q2: How many drinks containi ng alcohol do you have on a typical day when you are drinking? Patient does not drink Q3: How often do you have si x or more drinks on one occasion? Never 09/23/2024 Overall Financial Resource Strain (CARDIA) Answe r Date Recorded Difficulty of Paying Living Expenses Not hard at all 10/14/2018 PHQ-2 Answer Date Recorded PHQ-2 Score 0 10/29/2018 Hunger Vital Sign Answer Date Recorded Within the past 12 months, y ou worried that your food would run out before you got the money to buy more. Never true 06/03/19 25 Within the past 12 months, t he food you bought just didn't last and you didn't have money to get more. 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 Not on file Not on file Obstetrics History Last Filed Vital Signs Vital Sign Reading Time Taken Comments Blood Pressure 97/62 09/23/2024 8:04 AM CDT Pulse 83 09/23/2024 8:04 AM CDT Temperature 36.5 C (97.7 F) 09/23/2024 8:04 AM CDT Respiratory Rate 16 09/23/2024 8:04 AM CDT Oxygen Saturation 97% 09/23/2024 8:04 AM CDT Inhaled Oxygen Concentration - - Weight 73.9 kg (163 lb) 09/23/2024 8:04 AM CDT Height 165.1 cm (5' 5) 09/23/2024 8:04 AM CDT Body Mass Index 27.12 09/23/2024 8:04 AM CDT Plan of Treatment Health Maintenance Due Date Last Done Comments Breast Cancer Screening-Mammogram 1975 Colon Cancer Screening-Colonoscopy 1975 Hepatitis C Screening 1975 DTaP/Tdap/Td Vaccine (1 - Tdap) 12/26/1986 Hepatitis B Screening 12/26/1993 Regular Well Visit/Exam 18-64 12/26/1993 Depression Screening 10/13/2019 10/12/2018 Covid-19 Vaccine ( season) 2023 04/13/2020, 03/16/2020 Influenza Vaccine (#1) 2024 , 12/04/2018, 12/04/2018, Additional history exists Pneumococcal vaccine <65 Aged Out No longer eligible based on patient's age to complete this topic Goals Goal Patient Goal Type Associated Problems Recent Progress Patient-Stated? Author CCM Chronic Pain Care Plan Chronic Care Management Improving( 8:09 AM CDT) Lenora Blair RN Note: Problem: Chronic Pain Goals: 1. Minimize further functional decline 2. Maximize quality of life 3. Control pain Strategies: - Activity/exercise program recommendation - Conservative stepwise pain medicine strategy with multi-disciplinary approach - Recommend healthy lifestyle strategies and compensatory methods as needed Procedures Procedure Name Priority Date/Time Associated Diagnosis Comments DIFFERENTIAL AUTO Routine 08/04/2024 8:4 3 AM CDT Iron deficiency anemia, unspecified iron deficiency anemia type CBC WITH AUTO DIFFERENTIAL Routine 08/04/2024 8:43 AM CDT Iron deficiency anemia, unspecified iron deficiency anemia type FOLATE Routine 08/04/2024 8:43 AM CDT Iron deficiency anemia, unspecified iron deficiency anemia type VITAMIN B12 Routine 08/04/2024 8:43 AM CDT Iron deficiency anemia, unspecified iron deficiency anemia type FERRITIN Routine 08/04/2024 8:43 AM CDT Iron deficiency anemia, unspecified iron deficiency anemia type IRON PROFILE W/ IBC Routine 08/04/2024 8 :43 AM CDT Iron deficiency anemia, unspecified iron deficiency anemia type from Last 3 Months Results * Differential, auto (08/04/2024 8:43 AM CDT) Pathologist [facility] Neutrophil abs 2.62 1.50 - 6.50 K/cumm Comment:Testing performed by : [facility], [address] [place] [id number] Imm gran abs 0.03 0.00 - 0.10 K/cumm [facility] Lymphocyte abs 1.52 0.80 - 3.30 K/cumm [facility] Monocyte abs 0.29 0.20 - 0.80 K/cumm [facility] Eosinophil abs 0.39 0.00 - 0.50 K/cumm [facility] Basophil abs 0.05 0.00 - 0.10 K/cumm [facility] Neutrophil pct 53.5 % [facility] Comment: Interpretive Data Percent cell count reference ranges are not reported, since discordance with absolute values may lead to misinterpretation of CBC data. Current Interpretive Data was last revised on 2017. Imm gran pct 0.6 % [facility] Comment: Interpretive Data Percent cell count reference ranges are not reported, since discordance with absolute values may lead to misinterpretation of CBC data. Current Interpretive Data was last revised on 2017. Lymphocyte pct 31.0 % [facility] Comment: Interpretive Data Percent cell count reference ranges are not reported, since discordance with absolute values may lead to misinterpretation of CBC data. Current Interpretive Data was last revised on 2017. Monocyte pct 5.9 % [facility] Comment: Interpretive Data Percent cell count reference ranges are not reported, since discordance with absolute values may lead to misinterpretation of CBC data. Current Interpretive Data was last revised on 2017. Eosinophil pct 8.0 % [facility] Comment: Interpretive Data Percent cell count reference ranges are not reported, since discordance with absolute values may lead to misinterpretation of CBC data. Current Interpretive Data was last revised on 2017. Basophil pct 1.0 % [facility] Comment: Interpretive Data Percent cell count reference ranges are not reported, since discordance with absolute values may lead to misinterpretation of CBC data. Current Interpretive Data was last revised on 2017. Blood 08/04/2024 8:43 AM CDT 08/04/2024 9:17 AM CDT Maddy Penny PRESCHOOL AIDE LAB BLOOD ORDERABLES Final Result [facility] Department [place] [address] * Iron profile w/ IBC (08/04/2024 8:43 AM CDT) Iron 102 35 - 145 mcg/dL TIBC 314 250 - 400 mcg/dL [facility] Transferrin saturation 32 20 - 50 % [facility] Blood 08/04/2024 8:43 AM CDT 08/04/2024 11:55 AM CDT Maddy Penny NP LAB BLOOD ORDERABLES Final Result Performing Organization Address City/[facility]/ZIP Co de Phone Number [facility] Department [place] [address] * (ABNORMAL) CBC with auto differential (08/04/2024 8:43 AM CDT) [facility] WBC 4.90 3.80 - 9.90 K/cumm Comment:Testing performed by : [address] [address] Hgb 12.8 11.9 - 15.5 g/dL [facility] Comment:Testing performed by : [address] [address] Hct 40.3 35.6 - 45.5 % [facility] Comment:Testing performed by : [address] [address] Plt 292 150 - 400 K/cumm [facility] Comment:Testing performed by : [address] [address] MPV 9.2 9.1 - 12.3 fL [facility] RBC 4.07 3.90 - 5.20 M/cumm [facility] MCV 99.0(H) 81.3 - 96.4 fL [facility] MCH 31.4 27.1 - 33.3 pg [facility] MCHC 31.8(L) 32.3 - 35.7 g/dL [facility] RDW CV 12.1 11.1 - 14.9 % [facility] RDW SD 43.9 35.7 - 48.1 fL [facility] NRBC abs 0.00 0.00 - 0.01 K/cumm [facility] Blood 08/04/2024 8:43 AM CDT 08/04/2024 9:17 AM CDT us Maddy Penny PRESCHOOL AIDE LAB BLOOD ORDERABLES Final Result [facility] [place] [address] * Folate (08/04/2024 8:43 AM CDT) [facility] Folic acid 8.0 >=5.0 ng/mL Blood 08/04/2024 8:43 AM CDT 08/04/2024 11:55 AM CDT Maddy Penny PRESCHOOL AIDE LAB BLOOD ORDERABLES Final Result Performing Organization Address [facility] Co de Phone Number [facility] [place] [address] * Ferritin (08/04/2024 8:43 AM CDT) Ferritin 64 13 - 150 ng/mL Blood 08/04/2024 8:43 AM CDT 08/04/2024 11:55 AM CDT Maddy Penny PRESCHOOL AIDE LAB BLOOD ORDERABLES Final Result Performing Organization Address [facility] Phone Number [facility] [place] [address] * Vitamin B12 (08/04/2024 8:43 AM CDT) Vitamin B12 490 230 - 1,250 pg/mL Blood 08/04/2024 8:43 AM CDT 08/04/2024 11:55 AM CDT Maddy Penny NP LAB BLOOD ORDERABLES Final Result Performing Organization Address [facility] Phone Number [facility] [place] [address] from Last 3 Months Insurance ANTHHEATHER ACCESS BLUE ACCESS OOS [employer] ACCESS OOS [employer] ACCESS OOS Advance Directives For more information, please contact: [phone] * Full Code (Latest Code Status on File) Date Activated Date Inactivated Comments 10/12/2018 5:15 PM 10/15/2018 9:28 PM Care Teams Diesel Locomotive Crane Operator Relationship Specialty Start Date End Date Jaiden Carrasco MD [address] [address] PCP - General Family Medicine 02/09/19 Sergio Fair MD [address] [id number] Referring Physician Neurosurgery 12/07/19 Natalie Sanchez NP [address] [address] Nurse Practitioner Family Medicine 05/10/21 [place] [address] [place], [place] [id number] Optometry 01/15/22 [place] [address] [place] [address] Consulting Physician Neurology 01/15/22
--- OUTSIDE RECORDS SUMMARY | 2024-09-29 13:41 | XMS_ITS | Encounter Summary ---
Author Organization [facility] Healthcare Address [address] [facility] [place] [address] Care Team Providers Care Plant Care Worker Name Role Phone Jaiden Carrasco MD Primary Care Provider [phone] Sergio Fair MD Unavailable Natalie Sanchez NP Unavailable [phone] Odalys De La Torre OD Unavailable [phone] Trey Duncan MD Unavailable [phone] Reason for Visit * Reason Onset Date Comments pre procedure instructions 05/27/2024 Encounter Details Date Type Department Care Team (Late st Contact Info) Description 05/27/2024 Telephone [facility] [address] [facility] [address] [place] [address] Masha Jo MD [address] [place] [address] pre procedure instructions Social History Tobacco Use Types Packs/Day Years Used Date Smoking Tobacco: Former Cigarettes Q uit: 07/18/2005 Passive Smoke Exposure: Past Smokeless Tobacco: Never Alcohol Use Standard Drinks/Week Comments Not Currently 0 (1 standard drink = 0.6 oz pur e alcohol) Social Connection and Isolat ion Panel [NHANES] Answer Date Recorded Frequency of Communication w ith Friends and Family More than three times a week 10/14/2018 Frequency of Social Gatherin gs with Friends and Family Once a week 10/14/2018 Attends Adventism Services Never 10/14 Active Member of Clubs or Organizations No 10/14/2018 Attends Club or Organization Meetings Never 10/14/2018 Marital Status 10/14/2018 AUDIT-C Answer Date Recorded Q1: How often do you have a drink containing alcohol? Never 03/02/2024 Q2: How many drinks containi ng alcohol do you have on a typical day when you are drinking? Patient does not drink Q3: How often do you have si x or more drinks on one occasion? Never 03/02/2024 Overall Financial Resource Strain (CARDIA) Answe r Date Recorded Difficulty of Paying Living Expenses Not hard at all 10/14/2018 PHQ-2 Answer Date Recorded PHQ-2 Score 0 10/29/2018 Hunger Vital Sign Answer Date Recorded Within the past 12 months, y ou worried that your food would run out before you got the money to buy more. Never true 11/25/19 24 Within the past 12 months, t he food you bought just didn't last and you didn't have money to get more. 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 Author CCM Chronic Pain Care Plan Chronic Care Management Improving( 8:09 AM CDT) No Lenora Hanna RN Note: Problem: Chronic Pain Goals: 1. Minimize further functional decline 2. Maximize quality of life 3. Control pain Strategies: - Activity/exercise program recommendation - Conservative stepwise pain medicine strategy with multi-disciplinary approach - Recommend healthy lifestyle strategies and compensatory methods as needed documented as of this encounter Visit Diagnoses Not on filedocumented in this encounter Care Teams Plant Care Worker Relationship Specialty Start Date End Date Jaiden Carrasco MD [address] [address] PCP - General Family Medicine 02/09/19 Sergio Fair MD [address] [id number] Referring Physician Neurosurgery 12/07/19 Natalie Sanchez NP [address] [address] Nurse Practitioner Family Medicine 05/10/21 Odalys De La Torre, [place] [address] [place] [address] Optometry 01/15/22 [place] [address] [place] [address] Consulting Physician Neurology 01/15/22 documented as of this encounter
--- OUTSIDE RECORDS SUMMARY | 2024-09-29 13:41 | XMS_ITS | Referral Summary ---
Author Organization [facility] Address [address] [place] [address] Care Team Providers Care Eyeglass Frames Inspector Name Role Phone Jaiden Carrasco MD Primary Care Provider Sergio Fair MD Unavailable Natalie Sanchez NP Unavailable [phone] Odalys De La Torre OD Unavailable [phone] Trey Duncan MD Unavailable Encounters Date Type Department Care Team Description 09/23/2024 7:53 AM CDT - 09/23/2024 11:59 PM CDT Hospital Encounter [facility] [address] [place] [address] for Advanced Medicine [address] [place] [address] Masha Jo MD Bilateral occipital neuralgia Discharge Disposition: Discharge to home or self care 09/18/2024 Telephone [facility] [address] [facility] [address] [place] [address] Masha Jo MD PMC Preprocedure 08/04/2024 Orders Only [facility] [address] [place] [id number] Dea Nails RN Iron deficiency anemia, unspecified iron deficiency anemia type (Primary Dx) 08/04/2024 8:[address] [facility] [address] [place] [address] Iron deficiency anemia, unspecified iron deficiency anemia type 08/04/2024 9:30 AM CDT Office Visit [facility]ology [address] [facility] 2nd [address] [place] [address] Maddy Penny NP Iron deficiency anemia, unspecified iron deficiency anemia type (Primary Dx); B12 deficiency 08/04/2024 9:00 AM CDT Lab [facility] [address] [facility] 2nd [address] [place] [address] from Last 3 Months Allergies Active Allergy Reactions Criticality Noted Date [...] EVERY DAY AT BEDTIME FOR SLEEP 05/28/19 25 Active Keppra 500 mg tablet every 12 hours Activ e tiZANidine (ZANAFLEX) 4 mg tablet TAKE 1/2-1 TABLET BY MOUTH 3 TIMES DAILY NEEDED FOR MUSCLE SPASMS 04/13/19 25 Active ARIPiprazole (ABILIFY) 20 mg tablet Take [...] 01/24/2022 Assessment & Plan (01/24/2022 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 Educated on need to update. Will call with any new/worsening symptoms. Convergence insufficiency 01/24/2022 Assessment & Plan (01/24/2022 3:50 PM RETAIL BRANCH MANAGER): Continue with small base-in prism (BI) prism at near. 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 tion 05/28/2015 Pseudoseizure Immunizations Immunization Administration Dates Next Due Flucelvax Influenza Quad 01/15/2017 Influenza, Quadrivalent, Janeth l Culture-based MDCK, Preservative Free, Antibiotic Free, Intramuscular 12/12/2019 Influenza, Quadrivalent, Spl it, Intramuscular 02/10/2016 Influenza, Quadrivalent, Spl it, Preservative Free, Intramuscular 12/04/2018,01/05/2018,01/04/2018 Influenza, Trivalent, High D ose, Split, Preservative Free, Intramuscular 12/04/2018 Social History Tobacco Use Types Packs/Day Years [...] and Family Once a week 10/14/2018 Attends [employer] Never 10/14 Active Member of Clubs [...] on file Legal Sex Female 2:46 PM RETAIL BRANCH MANAGER Gender Identity Not on file Sexual Orientation Straight 03/18/2020 10 :53 PM RETAIL BRANCH MANAGER 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 Author CCM Chronic Pain Care Plan Chronic Care Management Improving( 8:09 AM CDT) No Lenora Hanna, RN Note: Problem: Chronic Pain Goals: 1. [...] * Differential, auto (08/04/2024 8:43 AM CDT) Neutrophil abs 2.62 1.50 - 6.50 K/cumm Comment:Testing performed by : [facility], [address] [place] [id number] Imm gran abs 0.03 0.00 - 0.10 K/cumm [facility] Lymphocyte abs 1.52 0.80 - 3.30 K/cumm [facility] Monocyte abs 0.29 0.20 - 0.80 K/cumm [facility] Eosinophil abs 0.39 0.00 - 0.50 K/cumm [facility] Basophil abs 0.05 0.00 - 0.10 K/cumm [facility] Neutrophil pct 53.5 % [facility] Comment: Interpretive Data Percent cell count reference ranges are not reported, since discordance with absolute values may lead to misinterpretation of CBC data. Current Interpretive Data was last revised on 2017. Imm gran pct 0.6 % [facility] Comment: Interpretive Data Percent cell count reference ranges are not reported, since discordance with absolute values may lead to misinterpretation of CBC data. Current Interpretive Data was last revised on 2017. Lymphocyte pct 31.0 % [facility] Comment: Interpretive Data Percent cell count reference ranges are not reported, since discordance with absolute values may lead to misinterpretation of CBC data. Current Interpretive Data was last revised on 2017. Monocyte pct 5.9 % [facility] Comment: Interpretive Data Percent cell count reference ranges are not reported, since discordance with absolute values may lead to misinterpretation of CBC data. Current Interpretive Data was last revised on 2017. Eosinophil pct 8.0 % [facility] Comment: Interpretive Data Percent cell count reference ranges are not reported, since discordance with absolute values may lead to misinterpretation of CBC data. Current Interpretive Data was last revised on 2017. Basophil pct 1.0 % [facility] Comment: Interpretive Data Percent cell count reference ranges are not reported, since discordance with absolute values may lead to misinterpretation of CBC data. Current Interpretive Data was last revised on 2017. Blood 08/04/2024 8:43 AM CDT 08/04/2024 9:17 AM CDT Maddy Penny NP LAB BLOOD ORDERABLES Final Result [facility] Department [place] [address] * Iron profile w/ IBC (08/04/2024 8:43 AM CDT) Iron 102 35 - 145 mcg/dL TIBC 314 250 - 400 mcg/dL [facility] Transferrin saturation 32 20 - 50 % [facility] Blood 08/04/2024 8:43 AM CDT 08/04/2024 11:55 AM CDT Maddy Penny NP LAB BLOOD ORDERABLES Final Result [facility] Department [place] [address] * (ABNORMAL) CBC with auto differential (08/04/2024 8:43 AM CDT) [facility] WBC 4.90 3.80 - 9.90 K/cumm Comment:Testing performed by : [facility], [address] [place] [address] Hgb 12.8 11.9 - 15.5 g/dL [facility] Comment:Testing performed by : [address] [address] Hct 40.3 35.6 - 45.5 % [facility] Comment:Testing performed by : [address] [address] Plt 292 150 - 400 K/cumm [facility] Comment:Testing performed by : [address] [address] MPV 9.2 9.1 - 12.3 fL [facility] RBC 4.07 3.90 - 5.20 M/cumm [facility] MCV 99.0(H) 81.3 - 96.4 fL [facility] MCH 31.4 27.1 - 33.3 pg [facility] MCHC 31.8(L) 32.3 - 35.7 g/dL [facility] RDW CV 12.1 11.1 - 14.9 % [facility] RDW SD 43.9 35.7 - 48.1 fL [facility] NRBC abs 0.00 0.00 - 0.01 K/cumm [facility] Blood 08/04/2024 8:43 AM CDT 08/04/2024 9:17 AM CDT Maddy Penny NP LAB BLOOD ORDERABLES Final Result [facility] Department [place] [address] * Folate (08/04/2024 8:43 AM CDT) Folic acid 8.0 >=5.0 ng/mL Blood 08/04/2024 8:43 AM CDT 08/04/2024 11:55 AM CDT Maddy Penny MACHINE DYER LAB BLOOD ORDERABLES Final Result Performing Organization Address [facility] Co de Phone Number [facility] [place] [address] * Ferritin (08/04/2024 8:43 AM CDT) Ferritin 64 13 - 150 ng/mL Blood 08/04/2024 8:43 AM CDT 08/04/2024 11:55 AM CDT Maddy Penny MACHINE DYER LAB BLOOD ORDERABLES Final Result Performing Organization Address [facility] de Phone Number [facility] [place] [address] * Vitamin B12 (08/04/2024 8:43 AM CDT) Vitamin B12 490 230 - 1,250 pg/mL Blood 08/04/2024 8:43 AM CDT 08/04/2024 11:55 AM CDT Maddy Penny MACHINE DYER LAB BLOOD ORDERABLES Final Result Performing Organization Address [facility] [place] [address] from Last 3 Months Insurance [employer] [place] [address] BLUE ACCESS OOS Advance Directives For more information, please contact: [phone] * Full Code (Latest Code Status on File) Date Activated Date Inactivated Comments 10/12/2018 5:15 PM 10/15/2018 9:28 PM Care Teams Eyeglass Frames Inspector Relationship Specialty Start Date End Date Jaiden Carrasco MD [address] [address] PCP - General Family Medicine 02/09/19 Sergio Fair MD [address] [address] Referring Physician Neurosurgery 12/07/19 Natalie Sanchez NP [address] [address] Nurse Practitioner Family Medicine 05/10/21 Odalys De La Torre, [address] [address] [place] [address] Optometry 01/15/22 [place] [address] [place] [address] Consulting Physician Neurology 01/15/22
--- OUTSIDE RECORDS SUMMARY | 2024-09-29 13:42 | XMS_ITS | Clinical Summary ---
Author Organization [facility] Address [address] [facility] [place] [address] Care Team Providers Care Clinical Research Nurse Coordinator Name Role Phone Augusto Kim MD Primary Care Provider [phone] Source Comments [facility],non-owned Affiliates and Associated Physician Practices is amultiple site organization consisting of ambulatory clinics and hospital sitesin [place], [place] and [place]. This disclosure is being madepursuant to the Care Everywhere program and may not contain all information available regarding this patient. Last updated 17[employer] Allergies No known active allergies Medications * Be aware that medications may not be up to date on this document. Alwaysverify current medications with the patient. escitalopram (LEXAPRO) 20 MG tablet Take 20 mg by mouth once daily Active zolpidem (AMBIEN) 10 MG tablet Take 10 mg by mouth nightly as needed for Insomnia Active Other calcium Active ketorolac (TORADOL) 10 MG tablet Inject 60 mg into muscle as needed for Pain (for migrane) Active prochlorperazin e (COMPAZINE) 10 MG tablet Take 10 mg by mouth as needed for Nausea/Vomiti ng (for migrane) Active diphenhydrAMINE (BENADRYL) 50 MG capsuleIndicati ons:Insomnia Take 50 mg by mouth once daily Reasons: Trouble Sleeping Active multivitamin daily (THERAGRAN) tablet Take 1 Tab by mouth daily with food Active Active Problems Problem Noted Date Diagnosed Date 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 05/28/2015 Depression 05/28/2015 H/O gastric bypass 05/28/2015 Social History Tobacco Use Types Packs/Day Years Used Date Smoking Tobacco: Former Smokeless Tobacco: Never Alcohol Use Standard Drinks/Week Comments Yes 0 (1 standard drink = 0.6 oz pur e alcohol) Comments Unknown Sex and Gender Information Value Date Recorded Sex Assigned at Not on file Legal Sex Female 6:23 AM PAPER BOX CUTTER Gender Identity Not on file Sexual Orientation Not on file Last Filed Vital Signs Vital Sign Reading Time Taken Comments Blood Pressure 123/79 05/28/2015 2:50 PM CDT Pulse 66 05/28/2015 2:50 PM CDT Temperature 36.7 C (98.1 F) 05/28/2015 2:50 PM CDT Respiratory Rate 20 05/28/2015 2:50 PM CDT Oxygen Saturation 97% 05/28/2015 2:50 PM CDT Inhaled Oxygen Concentration - - Weight 92.4 kg (203 lb 11.3 oz) 016 12:18 AM CDT Height 165.1 cm (5' 5) 05/27/2015 9:26 PM CDT Body Mass Index 33.9 05/27/2015 9:26 PM CDT Plan of Treatment Health Maintenance Due Date Last Done Comments COLOGUARD (AGES 45-75) - COL ON CA SCREENING 1975 COLON MONITORING 1975 COLONOSCOPY - COLON CA SCREENING 1975 CT COLONOGRAPHY - COLON CA SCREENING 1975 Colorectal Cancer Screening 1975 FIT - COLON CA SCREENING 1975 FLEX SIG - COLON CA SCREENING 1975 LIPID TESTING 1975 MAMMOGRAM 1975 HIV SCREENING 12/26/1990 HEPATITIS C SCREENING 12/22/1993 DTAP/TDAP/TD VACCINES (1 - Tdap) 12/26/1994 HEPATITIS B VACCINE (1 of 3 - 19+ 3-dose series) 12/26/1994 COVID-19 VACCINE ( - 2023-2 5 season) 2023 DEPRESSION SCREENING 03/11/2024 INFLUENZA VACCINE (#1) 2024 ZOSTER VACCINE (1 of 2) 12/26/2025 HIB VACCINE Aged Out No longer eligi ble based on patient's age to complete this topic HPV VACCINE Aged Out No longer eligi ble based on patient's age to complete this topic MENINGOCOCCAL (Group B) VACC INE SHARED DECISION-MAKING Aged Out No longer eligibl e based on patient's age to complete this topic MENINGOCOCCAL GROUPS A/C/Y/W VACCINE Aged Out No longer eligible b ased on patient's age to complete this topic PNEUMOCOCCAL VACCINE Aged Out No long er eligible based on patient's age to complete this topic Insurance [employer] Advance Directives * Full Code (Latest Code Status on File) Date Activated Date Inactivated Comments 05/28/2015 12:30 AM 05/28/2015 7:14 PM Care Teams Clinical Research Nurse Coordinator Relationship Specialty Start Date End Date Augusto Kim MD [facility] [place] [address] PCP - General Family Medicine 05/27/15
--- OUTSIDE RECORDS SUMMARY | 2024-09-29 13:42 | XMS_ITS | Clinical Summary ---
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 Gender Identity Not on file Sexual Orientation Not on file Plan of Treatment Health Maintenance Due Date Last Done Comments Cervical Cancer Screening Pa p Smear (Age 30 to 64) Every 3 Years 1975 Colorectal Cancer Screening Colonoscopy (10 Years) 1975 Annual Physical 12/26/1978 Hepatitis C 12/26/1993 DTaP, Tdap and Td Vaccines ( 1 - Tdap) 12/26/1994 Hepatitis B Vaccines (1 of 3 - 19+ 3-dose series) 12/26/1994 Cervical Cancer Screening Pa p with HPV Testing (Age 30 to 64) Every 5 Years 12/26/2005 Cervical Cancer Screening wi th HPV 12/26/2005 Mammogram Screening 2015 COVID-19 Vaccine (2023-2 5 season) 2023 04/13/2020, 03/16/2020 Meningococcal B Vaccine Aged Out No l onger eligible based on patient's age to complete this topic Meningococcal Vaccine Aged Out No nan rey eligible based on patient's age to complete this topic Pneumococcal Vaccine: Pediatrics (0 to 5 Years) and At-Risk Patients (6 to 49 Years) Aged Out No longer eligible b ased on patient's age to complete this topic RSV Immunizations Under 20 Months Aged Out No longer eligible b ased on patient's age to complete this topic
--- OUTSIDE RECORDS SUMMARY | 2024-09-29 13:43 | XMS_ITS ---
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 or tramadol.30 + minutes were spent reviewing records, obtaining history, doing a physical exam as appropriate, documenting in the chart, and any associated orders, all on the day of the visit. Voice dictation software is in use. Hydraulic Punch Press Operator variances may occur. Please excuse if any pronouns (he/she/they) or other wording is incorrect. If there is concern in wording, feel free to message back. We discussed the diagnosis today. We discussed the implications of this on future health and management. Stressed importance of the plan. I reviewed relevant possible side effects and interactions of these medications. This allergy history was addressed in my selection of new medications. The patient was instructed to read packet insert and follow the instructions before taking the medication. We discussed potential referrals, testing and indications as above. Patient was instructed that it is their responsiblity to call to schedule (and follow through) with their testing. If they do not hear from our office in 1-2 weeks from the date of their testing, they were instructed that they need to contact our office for results. For female patients, it was discussed to contact us if they wish to become or are . Additionally, if that applies, they should discuss all medications and treatments with their OBGyn before initiated therapy. Patient instructed to check the portal for updated care plan notes and clinical note. 2024-09-23 13:30:00 Since her last visit she has not had any seizure events. No issues with her medication. She still has headaches but it is slightly less frequent. She continues to do Vyepti. Unfortunately she states that she did not get a call for the pain management that potentially could do C2-3 so we will refer her to the interventional [facility] [place].30 + minutes were spent reviewing records, obtaining history, doing a physical exam as appropriate, documenting in the chart, and any associated orders, all on the day of the visit. Voice dictation software is in use. Hydraulic Punch Press Operator variances may occur. Please excuse if any pronouns (he/she/they) or other wording is incorrect. If there is concern in wording, feel free to message back. We discussed the diagnosis today. We discussed the implications of this on future health and management. Stressed importance of the plan. I reviewed relevant possible side effects and interactions of these medications. This allergy history was addressed in my selection of new medications. The patient was instructed to read packet insert and follow the instructions before taking the medication. We discussed potential referrals, testing and indications as above. Patient was instructed that it is their responsiblity to call to schedule (and follow through) with their testing. If they do not hear from our office in 1-2 weeks from the date of their testing, they were instructed that they need to contact our office for results. For female patients, it was discussed to contact us if they wish to become or are . Additionally, if that applies, they should discuss all medications and treatments with their OBGyn before initiated therapy. Patient instructed to check the portal for updated care plan notes and clinical note. Plan of Care Date of Service Plans 2023-05-06 06:30:00 [facility] [place] [facility] [place] ([phone]) and at [facility] ([phone])Dr Zaira Mar*Pain & Rehabilitation SpecialistsDr Liudmila Garret*[email or web address] For the occipital neuralgia/neck pain, will refer to pain management for consideration of C2-3 medial branch blocks / facet blocks and/or radiofrequency ablation. 2023-08-06 07:00:00 [facility] [place] [facility] [place] ([phone]) and at [facility] ([phone])Dr Zaira Mar*- RFA as previously discussed- continue vyepti 2023-10-23 06:30:00 - await rfa- continu e prior medication regimen 2023-12-30 07:00:00 Lyrica (pregaba pierre)75 mg pillsTake 1 twice a dayWe can consider at a future visit to include to a higher dose.Side effects can include somnolence and dizziness.- discussed with her that rheum may want an antiinflammatory but she risks Medication overuse headaches- Patient was prescribed pregabalin (Lyrica) 75 mg TID. Starting dose is 75 mg BID. Max dose is up to 600 mg total daily dose. Everything below was discussed.Antiepileptic drugs (AEDs), including LYRICA, increase the risk of suicidal thoughts or behavior in patients taking AEDs for any indication. They were counseled to watch for emergence or worsening of depression, suicidal thoughts or behavior, and/or any unusual changes in mood or behavior. Pooled analyses showed clinical trial patients taking an AED had approximately twice the risk of suicidal thoughts or behavior than placebo-treated patients. The estimated incidence rate of suicidal behavior or ideation among 27,863 AED-treated patients was 0.43%, compared to 0.24% among 16,029 placebo-treated patients, representing an increase of approximately 1 patient for every 530 patients treated with an AED.The most common adverse reactions across all LYRICA clinical trials in adults were dizziness, somnolence, dry mouth, edema, blurred vision, weight gain, constipation, euphoric mood, balance disorder, increased appetite, and thinking abnormal (primarily difficulty with concentration/attention). 2024-02-25 06:40:00 Vitamin B12 Def iciencyUnfortunately vitamin B12 deficiency can cause neurologic issues such as neuropathy and memory issues.Go to the pharmacy and get zoeb-ayh-bnwcvte sublingual B12 at take 1000 mcg daily. [employer] is likely a reliable brand that is found at many stores. If you need help do not hesitate to ask the pharmacy staff.If you have a follow-up appointment with me, ask about getting rechecked. If we do not have a follow-up appointment, discussed with your primary care doctor regarding this. In fact it is always good to keep your primary care physician up-to-date.If your levels remain low despite taking vitamin B12, we will likely have to recommend B12 injections.- Patient was started on vitamin B12 1000 mcg daily.- labs for tremor and b12- The patient will be started on Gabapentin (Neurontin). Side effects, including sedation, were discussed. Dose: 600 TIDIt was discussed that antiepileptic drugs (AEDs), including gabapentin, increase the risk of suicidal thoughts or behavior in patients taking AEDs for any indication. They were counseled to watch for emergence or worsening of depression, suicidal thoughts or behavior, and/or any unusual changes in mood or behavior. Pooled analyses showed clinical trial patients taking an AED had approximately twice the risk of suicidal thoughts or behavior than placebo-treated patients. The estimated incidence rate of suicidal behavior or ideation among 27,863 AED-treated patients was 0.43%, compared to 0.24% among 16,029 placebo-treated patients, representing an increase of approximately 1 patient for every 530 patients treated with an AED.- discussed primidone 2024-02-25 07:04:10 [95242] METHYLMALONI C ACID AND HOMOCYSTEINE 2024-02-25 07:04:10 [7444] THYROID PANEL WITH TSH 2024-02-25 07:04:10 [568] INTRINSIC FACT OR BLOCKING ANTIBODY 2024-02-25 07:04:10 [927] VITAMIN B12 2024-03-03 09:40:00 EEGAn EEG is al so known as a brainwave test.There is no needles involved. --SeizuresTry to keep a seizure log/journal/calendar.Note that you cannot drive unless they are free from any seizures or other events involving loss of awareness or consciousness for 6 months at a minimum and are licensed to drive by the state.Avoid any situations or environments that may lead to injury to yourself or another in the event of an episode of loss of consciousness or a seizure. Such situations include, but are not limited to, deep bathtubs, swimming unattended, heights, open fire, hot objects including cooking, high voltage sources, heavy machinery, and firearms use.SUDEP, which is sudden unexplained in epilepsy, can have a higher risk including but not limited to, increased risk of sudden in those with recurrent generalized seizures and the role of seizure control and compliance with the medications to improve seizure control and reduce this risk.Avoid common seizure triggers such as sleep deprivation, missing medications, and skipping meals.Inform family and close friends that if you have a convulsive seizure you should be placed on their side and nothing should be forced into your mouth. If a prolonged seizure occurs, appropriate emergency medical services should be activated and you should be brought to the hospital.Individuals with epilepsy have increased risk of osteopenia-osteoporosis spectrum disease and skeletal fractures, and was encouraged to take calcium and vitamin D supplements daily. It is also to have regular physical activity, as tolerated.For females: All medications can can have effects on a fetus and that all pregnancies must be anticipated and planned. In the event of vitamins and folate supplements must be taken to reduce the risk to the fetus. Additionally, no method of contraception is infallible and that even contraceptive pills may fail. Utilize barrier methods in addition to IUD/Pills/etc methods. Alternate methods of contraception should be used under the supervision of a stripe matcher and if oral contraceptives are used dosage adjustments may be required due to the use of anti-seizure medications; such adjustments should be made by a stripe matcher. Inform the clinic in the event of a (unplanned or planned) or if you are planning on trying to become . --Imaging Phone Numberscall to schedule and please let me know if there is any difficulty [facility] Central Scheduling [phone] (preferred)[facility] Central Scheduling [phone] Central Scheduling [phone] [email or web address] [facility] [email or web address] [phone] ([facility]) [address] [place] [address] [place] ([facility]) [email or web address] awaiting holter monitor- likely rec cardiology- EEG will be ordered to assess for epileptiform/seizure activity as a cause for their symptoms. It is noted that an EEG itself does not rule out a diagnosis of seizure as the EEG has low sensitivity but high specificity.Seizure Plan - Patient was encouraged to keep a seizure log/journal/calendar.- Seizure safety precautions were emphasized to the patient.I told them in clear terms that they cannot drive unless they are free from any seizures or other events involving loss of awareness or consciousness for 6 months at a minimum and are licensed to drive by the state (1 year for [employer]). I also instructed the patient to avoid any situations or environments that may lead to injury to themselves or another in the event of an episode of loss of consciousness or a seizure. Such situations include, but are not limited to, deep bathtubs, swimming unattended, heights, open fire, hot objects including cooking, high voltage sources, heavy machinery, and firearms use.- Patient was educated regarding SUDEP,including but not limited to, increased risk of sudden in those with recurrent generalized seizures and the role of seizure control and compliance with AEDs to improve seizure control and reduce this risk.- Patient was instructed on avoiding common seizure triggers such as sleep deprivation, missing medications, and skipping meals.- MRI of the brain without contrast will be ordered to rule out a structural etiology of their symptoms. If findings on imaging suggest the need for contrast, it may be considered at that time.The patient was instructed call and set up an appointment for imaging and to follow-up with us if they did not receive a call/message for a normal study.- recommend to d/c auvelity (wellbutrin) due to decreased seizure threshold 2024-03-31 12:00:00 - Patient will be st arted on levetiracetam 500 mg BID.Generally this is a well-tolerated medicine. In cases of severe, uncontrolled depression/psychiatric illnesses, there is a chance of worsening these with this medication; risk vs benefit.FDA has reported that the risks of suicidal thoughts and behaviors was 0.43 % among 43,892 patients taking anti-seizure medications (in general) compared to 0.22% among 16,029 patients treated with placebos. This was discussed with the patient.Keppra (levetiracetam)You will be started on Keppra twice a day dosing.Generally this is well-tolerated medication and side effects tend to be mild.If you have a major psych disorder, discuss with me first before starting this medication- no driving 6 months from her incident- continue gabapentin- no wellbutrin at all 2024-04-21 09:20:00 Seizure sTry to keep a seizure log/journal/calendar.Note that you cannot drive unless they are free from any seizures or other events involving loss of awareness or consciousness for 6 months at a minimum and are licensed to drive by the state.Avoid any situations or environments that may lead to injury to yourself or another in the event of an episode of loss of consciousness or a seizure. Such situations include, but are not limited to, deep bathtubs, swimming unattended, heights, open fire, hot objects including cooking, high voltage sources, heavy machinery, and firearms use.SUDEP, which is sudden unexplained in epilepsy, can have a higher risk including but not limited to, increased risk of sudden in those with recurrent generalized seizures and the role of seizure control and compliance with the medications to improve seizure control and reduce this risk.Avoid common seizure triggers such as sleep deprivation, missing medications, and skipping meals.Inform family and close friends that if you have a convulsive seizure you should be placed on their side and nothing should be forced into your mouth. If a prolonged seizure occurs, appropriate emergency medical services should be activated and you should be brought to the hospital.Individuals with epilepsy have increased risk of osteopenia-osteoporosis spectrum disease and skeletal fractures, and was encouraged to take calcium and vitamin D supplements daily. It is also to have regular physical activity, as tolerated.For females: All medications can can have effects on a fetus and that all pregnancies must be anticipated and planned. In the event of vitamins and folate supplements must be taken to reduce the risk to the fetus. Additionally, no method of contraception is infallible and that even contraceptive pills may fail. Utilize barrier methods in addition to IUD/Pills/etc methods. Alternate methods of contraception should be used under the supervision of a stripe matcher and if oral contraceptives are used dosage adjustments may be required due to the use of anti-seizure medications; such adjustments should be made by a stripe matcher. Inform the clinic in the event of a (unplanned or planned) or if you are planning on trying to become . --- continue keppra 500 mg bidSeizure Plan - Patient was encouraged to keep a seizure log/journal/calendar.- Seizure safety precautions were emphasized to the patient.I told them in clear terms that they cannot drive unless they are free from any seizures or other events involving loss of awareness or consciousness for 6 months at a minimum and are licensed to drive by the [facility] (1 year for [employer]). I also instructed the patient to avoid any situations or environments that may lead to injury to themselves or another in the event of an episode of loss of consciousness or a seizure. Such situations include, but are not limited to, deep bathtubs, swimming unattended, heights, open fire, hot objects including cooking, high voltage sources, heavy machinery, and firearms use.- Patient was educated regarding SUDEP,including but not limited to, increased risk of sudden in those with recurrent generalized seizures and the role of seizure control and compliance with AEDs to improve seizure control and reduce this risk.- Patient was instructed on avoiding common seizure triggers such as sleep deprivation, missing medications, and skipping meals. 2024-09-23 13:30:00 - refer to [facility] for Live FA- continue vyepti 300- continue keppra for Sz
--- OUTSIDE RECORDS SUMMARY | 2024-09-29 13:43 | XMS_ITS | Encounter Summary ---
Author Organization [facility] Healthcare Address [address] [place] [address] Care Team Providers Care Ampoule Washing Machine Operator Name Role Phone Jaiden Carrasco MD Primary Care Provider [phone] Sergio Fair MD Unavailable [phone] Natalie Sanchez NP Unavailable [phone] Odalys De La Torre OD Unavailable [phone] Trey Duncan MD Unavailable Reason for Visit * Reason Onset Date Comments PMC Preprocedure 08/02/2023 Encounter Details Date Type Department Care Team (Late st Contact Info) Description 08/02/2023 Telephone [facility] [address] [place] [address] Dylan Méndez MD [address] [place] [address] PMC Preprocedure Social History Tobacco Use Types Packs/Day Years [...] and Family Once a week 10/14/2018 Attends Yarsanism Services Never 10/14 Active Member of Clubs or Organizations No 10/14/2018 Attends Club or Organization Meetings Never 10/14/2018 Marital Status 10/14/2018 AUDIT-C Answer Date Recorded Q1: How often do you have a drink containing alcohol? Never 05/03/2023 Q2: How many drinks containi ng alcohol do you have on a typical day when you are drinking? Patient does not drink Q3: How often do you have si x or more drinks on one occasion? 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 Author CCM Chronic Pain Care Plan Chronic Care Management Improving( 8:09 AM CDT) No Lenora Hanna, CECILIO Note: Problem: Chronic Pain Goals: 1. Minimize further functional decline 2. Maximize quality of life 3. Control pain Strategies: - Activity/exercise program recommendation - Conservative stepwise pain medicine strategy with multi-disciplinary approach - Recommend healthy lifestyle strategies and compensatory methods as needed documented as of this encounter Visit Diagnoses Not on filedocumented in this encounter Care Teams Ampoule Washing Machine Operator Relationship Specialty Start Date End Date Jaiden Carrasco MD [address] [address] PCP - General Family Medicine 02/09/19 Sergio Fair MD [address] [address] Referring Physician Neurosurgery 12/07/19 Natalie Sanchez NP [address] [address] Nurse Practitioner Family Medicine 05/10/21 [place] [address] [place] [address] Optometry 01/15/22 [place] [address] [place], [place] [id number] Consulting Physician Neurology 01/15/22 documented as of this encounter
== END ==
PROVIDERS: PCP Nurse Practitioner Family; Visit Provider Nurse Practitioner Family
DX: M25.541 Pain in joints of right hand (principal)
CPT/HCPCS: 73140

== ENCOUNTER → 2024-10-06 14:33 | Outpatient (REF) | payer BC, SELFPAY ==
--- NOTE | 2024-10-06 14:33 | S_PTH ---
PATIENT: Ashley Sosa LOC: ANAB #:[id number] AGE/SX: 49/F ROOM: RE10/06/[address]: Joi Ghosh MD : 1975 BED: DIS: SPEC #: [id number] RECD: 10/07/24 06:42 STATUS: ELVIE RELuna #: [id number] IVORY: 10/06/24 14:[address]: Joi Ghosh DEPT: [facility] Surgical RECD BY: Pam Sargent ENTERED: 10/07/24 06:42 SP TYPE: Surgical OTHR DR: Natalie Sanchez APRN Tissues: A - Skin Procedures: Hematoxylin and Eosin Stain Gross and Microscopic Level 4
--- OUTSIDE RECORDS SUMMARY | 2024-10-06 14:36 | XMS_ITS | Encounter Summary ---
Author Organization [facility] Healthcare Address [address] [place] [address] Care Team Providers Care Supply Chain Manager Name Role Phone Jaiden Carrasco MD Primary Care Provider [phone] Sergio Fair MD Unavailable Natalie Sanchez NP Unavailable [phone] Odalys De La Torre OD Unavailable [phone] Trey Duncan MD Unavailable Reason for Visit * Reason Onset Date Comments pre procedure instructions 05/27/2024 Encounter Details Date Type Department Care Team (Late st Contact Info) Description 05/27/2024 Telephone [facility] [address] [facility] [address] [place] [address] Masha Jo MD [address] [place] [address] pre procedure instructions Social History Tobacco Use [...] and Family Once a week 10/14/2018 Attends Jew Services Never 10/14 Active Member of Clubs [...] on file Legal Sex Female 2:46 PM RAIMANN MACHINE OPERATOR Gender Identity Not on file Sexual Orientation Straight 03/18/2020 10 :53 PM RAIMANN MACHINE OPERATOR 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
--- OUTSIDE RECORDS SUMMARY | 2024-10-06 14:37 | XMS_ITS | Clinical Summary ---
Author Organization [facility] Address [address] [facility] [place] [address] Care Team Providers Care Railroad Auditor Name Role Phone Augusto Kim MD Primary Care Provider [phone] Source Comments [facility],non-owned Affiliates and Associated Physician Practices is amultiple site organization consisting of ambulatory clinics and hospital sitesin [place], [place], [place] and [place]. This disclosure is being madepursuant to the Care Everywhere program and may not contain all information available regarding this patient. Last updated 17.Pro Breath MD Allergies No known active allergies Medications * [...] on file Legal Sex Female 6:23 AM IT RISK AND ASSURANCE MANAGER Gender Identity Not on file Sexual [...] 12:30 AM 05/28/2015 7:14 PM Care Teams Railroad Auditor Relationship Specialty Start Date End Date Augusto Kim MD [facility] [place] [address] PCP - General Family Medicine 05/27/15
--- OUTSIDE RECORDS SUMMARY | 2024-10-06 14:37 | XMS_ITS | Clinical Summary ---
Author Organization [facility] Address [address] [place] [address] Care Team Providers Care Professor Of Art History Name Role Phone Jaiden Carrasco MD Primary Care Provider [phone] Sergio Fair MD Unavailable Natalie Sanchez NP Unavailable [phone] Odalys De La Torre OD Unavailable [phone] Trey Duncan MD Unavailable Allergies Active [...] 01/24/2022 Assessment & Plan (01/24/2022 3:49 PM COUNTY SUPERVISOR): Update computer/near specs with 4BI prism (split). Educated on need to update. Will call with any new/worsening symptoms. Convergence insufficiency 01/24/2022 Assessment & Plan (01/24/2022 3:50 PM COUNTY SUPERVISOR): Continue with small base-in prism (BI) prism at near. Abnormal eye movements 11/29/2021 Assessment & Plan (11/29/2021 7:20 AM CDT): Newly detected symptomatic eye movement abnormality of unclear chronicity and recent acuity changes in the setting of moderate TBI 2019, reported by her dehydrator operator; not responsive to prism lenses MRI IAC [...] 09/23/2024 11:59 PM CDT Hospital Encounter [facility] [place] [facility] [address] [facility] [address] [place] [address] Masha Jo MD Bilateral occipital neuralgia Discharge Disposition: Discharge to home or self care 09/18/2024 Telephone [facility] [address] [facility] [address] [place] [address] Masha Jo MD PMC Preprocedure 08/04/2024 9:30 AM CDT Office Visit [facility] [address] [place] [address] Maddy Penny NP Iron deficiency anemia, unspecified iron deficiency anemia type (Primary Dx); B12 deficiency 08/04/2024 9:00 AM CDT Lab [facility] [address] [place] [address] 08/04/2024 8:45 AM CDT Lab [facility] Advanced [facility] [address] [place] [address] Iron deficiency anemia, unspecified iron deficiency anemia type 08/04/2024 Orders Only [facility] [address] 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 Lymphocyte pct 31.0 % [facility] Comment: Interpretive Data Percent cell count reference ranges are not reported, since discordance with absolute values may lead to misinterpretation of CBC data. Current Interpretive Data was last revised on 2017. Monocyte pct 5.9 % [facility] Comment: Interpretive Data Percent cell count reference ranges are not reported, since discordance with absolute values may lead to misinterpretation of CBC data. Current Interpretive Data was last revised on 2017. Eosinophil pct 8.0 % [facility] Comment: Interpretive Data Percent cell count reference ranges are not reported, since discordance with absolute values may lead to misinterpretation of CBC data. Current Interpretive Data was last revised on 2017. Basophil pct 1.0 % [facility] Comment: Interpretive Data Percent cell count reference ranges are not reported, since discordance with absolute values may lead to misinterpretation of CBC data. Current Interpretive Data was last revised on 2017. Blood 08/04/2024 8:43 AM CDT 08/04/2024 9:17 AM CDT Maddy Penny CONFIGURATION ENGINEER LAB BLOOD ORDERABLES Final Result [facility] [place] [address] * Iron profile w/ IBC (08/04/2024 8:43 AM CDT) Iron 102 35 - 145 mcg/dL TIBC 314 250 - 400 mcg/dL [facility] Transferrin saturation 32 20 - 50 % [facility] Blood 08/04/2024 8:43 AM CDT 08/04/2024 11:55 AM CDT Maddy Penny NP LAB BLOOD ORDERABLES Final Result Performing Organization Address City/[facility]/ZIP Co de Phone Number [facility] [place] [address] * (ABNORMAL) CBC with auto differential (08/04/2024 8:43 AM CDT) [facility] WBC 4.90 3.80 - 9.90 K/cumm Comment:Testing performed by : [address] [address] Hgb 12.8 11.9 - 15.5 g/dL [facility] Comment:Testing performed by : [address] [address] Hct 40.3 35.6 - 45.5 % [facility] Comment:Testing performed by : [address] [address] Plt 292 150 - 400 K/cumm [facility] Comment:Testing performed by : [address] [address] MPV 9.2 9.1 - 12.3 fL [facility] RBC 4.07 3.90 - 5.20 M/cumm [facility] MCV 99.0(H) 81.3 - 96.4 fL [facility] MCH 31.4 27.1 - 33.3 pg [facility] MCHC 31.8(L) 32.3 - 35.7 g/dL [facility] RDW CV 12.1 11.1 - 14.9 % [facility] RDW SD 43.9 35.7 - 48.1 fL [facility] NRBC abs 0.00 0.00 - 0.01 K/cumm [facility] Blood 08/04/2024 8:43 AM CDT 08/04/2024 9:17 AM CDT us Maddy Penny CONFIGURATION ENGINEER LAB BLOOD ORDERABLES Final Result [facility] [place] [address] * Folate (08/04/2024 8:43 AM CDT) [facility] Folic acid 8.0 >=5.0 ng/mL Blood 08/04/2024 8:43 AM CDT 08/04/2024 11:55 AM CDT Maddy Penny CONFIGURATION ENGINEER LAB BLOOD ORDERABLES Final Result Performing Organization Address [facility] Co de Phone Number [facility] [place] [address] * Ferritin (08/04/2024 8:43 AM CDT) Ferritin 64 13 - 150 ng/mL Blood 08/04/2024 8:43 AM CDT 08/04/2024 11:55 AM CDT Maddy Penny CONFIGURATION ENGINEER LAB BLOOD ORDERABLES Final Result Performing Organization Address [facility] Phone Number [facility] [place] [address] * Vitamin B12 (08/04/2024 8:43 AM CDT) Vitamin B12 490 230 - 1,250 pg/mL Blood 08/04/2024 8:43 AM CDT 08/04/2024 11:55 AM CDT Maddy Penny NP LAB BLOOD ORDERABLES Final Result Performing Organization Address [facility] Phone Number [facility] [place] [address] from Last 3 Months Insurance [employer] ACCESS BLUE ACCESS [employer] Advance Directives For more information, please contact: [phone] * Full Code (Latest Code Status on File) Date Activated Date Inactivated Comments 10/12/2018 5:15 PM 10/15/2018 9:28 PM Care Teams Professor Of Art History Relationship Specialty Start Date End Date Jaiden Carrasco MD [address] [address] PCP - General Family Medicine 02/09/19 Sergio Fair MD [address] [address] Referring Physician Neurosurgery 12/07/19 Natalie Sanchez NP [address] [address] Nurse Practitioner Family Medicine 05/10/21 [place] [address] [place], [place] [id number] Optometry 01/15/22 [place] [address] [place] [address] Consulting Physician Neurology 01/15/22
--- OUTSIDE RECORDS SUMMARY | 2024-10-06 14:37 | XMS_ITS | Referral Summary ---
Author Organization [facility] Address [address] [place] [address] Care Team Providers Care Lap Machine Operator Name Role Phone Jaiden Carrasco MD Primary Care Provider Sergio Fair MD Unavailable [phone] Natalie Sanchez NP Unavailable [phone] Odalys De La Torre OD Unavailable [phone] Trey Dnucan MD Unavailable [phone] Encounters Date Type Department Care Team Description 09/23/2024 7:53 AM CDT - 09/23/2024 11:59 PM CDT Hospital Encounter [facility] [place] [address] [place] [address] for Advanced Medicine [address] [place] [address] Masha Jo MD Bilateral occipital neuralgia Discharge Disposition: Discharge to home or self care 09/18/2024 Telephone [facility] [place] [facility] [address] [facility] [address] [place] [address] Masha Jo MD PMC Preprocedure 08/04/2024 Orders Only [facility] [address] [facility] Floor 6 [place] [phone] Dea Nails RN Iron deficiency anemia, unspecified iron deficiency anemia type (Primary Dx) 08/04/2024 8:45 AM CDT Lab [facility] [address] [facility] [address] [address] [place] [address] Iron deficiency anemia, unspecified iron deficiency anemia type 08/04/2024 9:30 AM CDT Office Visit [facility] [address] [facility] 2nd [address] [place] [address] Maddy Penny NP Iron deficiency anemia, unspecified iron deficiency anemia type (Primary Dx); B12 deficiency 08/04/2024 9:00 AM CDT Lab [facility] [address] [facility] 2nd [address] [place] [address] from Last 3 Months Allergies Active Allergy [...] 01/24/2022 Assessment & Plan (01/24/2022 3:49 PM ASSOCIATE PROFESSOR OF HISTORY): Update computer/near specs with 4BI prism (split). Educated on need to update. Will call with any new/worsening symptoms. Convergence insufficiency 01/24/2022 Assessment & Plan (01/24/2022 3:50 PM ASSOCIATE PROFESSOR OF HISTORY): Continue with small base-in prism (BI) prism at near. 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 Not on file Not [...] - 6.50 K/cumm Comment:Testing performed by : [facility], [address] [place] [address] Imm gran abs 0.03 0.00 - 0.10 K/cumm [facility] Lymphocyte abs 1.52 0.80 - 3.30 K/cumm [facility] Monocyte abs 0.29 0.20 - 0.80 K/cumm [facility] Eosinophil abs 0.39 0.00 - 0.50 K/cumm [facility] Basophil abs 0.05 0.00 - 0.10 K/cumm [facility] Neutrophil pct 53.5 % [facility] Comment: Interpretive Data Percent cell count reference ranges are not reported, since discordance with absolute values may lead to misinterpretation of CBC data. Current Interpretive Data was last revised on 2017. Imm gran pct 0.6 % [facility] Comment: Interpretive Data Percent cell count reference ranges are not reported, since discordance with absolute values may lead to misinterpretation of CBC data. Current Interpretive Data was last revised on 2017. Lymphocyte pct 31.0 % [facility] Comment: Interpretive Data Percent cell count reference ranges are not reported, since discordance with absolute values may lead to misinterpretation of CBC data. Current Interpretive Data was last revised on 2017. Monocyte pct 5.9 % [facility] Comment: Interpretive Data Percent cell count reference ranges are not reported, since discordance with absolute values may lead to misinterpretation of CBC data. Current Interpretive Data was last revised on 2017. Eosinophil pct 8.0 % [facility] Comment: Interpretive Data Percent cell count reference ranges are not reported, since discordance with absolute values may lead to misinterpretation of CBC data. Current Interpretive Data was last revised on 2017. Basophil pct 1.0 % [facility] Comment: Interpretive Data Percent cell count reference ranges are not reported, since discordance with absolute values may lead to misinterpretation of CBC data. Current Interpretive Data was last revised on 2017. Blood 08/04/2024 8:43 AM CDT 08/04/2024 9:17 AM CDT Maddy Penny NP LAB BLOOD ORDERABLES Final Result [facility] Department [place] [address] * Iron profile w/ IBC (08/04/2024 8:43 AM CDT) Iron 102 35 - 145 mcg/dL TIBC 314 250 - 400 mcg/dL [facility] Transferrin saturation 32 20 - 50 % [facility] Blood 08/04/2024 8:43 AM CDT 08/04/2024 11:55 AM CDT Maddy Penny NP LAB BLOOD ORDERABLES Final Result [facility] Department [place] [address] * (ABNORMAL) CBC with auto differential (08/04/2024 8:43 AM CDT) [facility] WBC 4.90 3.80 - 9.90 K/cumm Comment:Testing performed by : [facility], [address] [place] [address] Hgb 12.8 11.9 - 15.5 g/dL [facility] Comment:Testing performed by : [address] [address] Hct 40.3 35.6 - 45.5 % [facility] Comment:Testing performed by : [address] [address] Plt 292 150 - 400 K/cumm [facility] Comment:Testing performed by : [address] [address] MPV 9.2 9.1 - 12.3 fL [facility] RBC 4.07 3.90 - 5.20 M/cumm [facility] MCV 99.0(H) 81.3 - 96.4 fL [facility] MCH 31.4 27.1 - 33.3 pg [facility] MCHC 31.8(L) 32.3 - 35.7 g/dL [facility] RDW CV 12.1 11.1 - 14.9 % [facility] RDW SD 43.9 35.7 - 48.1 fL [facility] NRBC abs 0.00 0.00 - 0.01 K/cumm [facility] Blood 08/04/2024 8:43 AM CDT 08/04/2024 9:17 AM CDT Maddy Penny NP LAB BLOOD ORDERABLES Final Result [facility] [place] [address] * Folate (08/04/2024 8:43 AM CDT) Folic acid 8.0 >=5.0 ng/mL Blood 08/04/2024 8:43 AM CDT 08/04/2024 11:55 AM CDT Maddy Penny FREIGHT ELEVATOR OPERATOR LAB BLOOD ORDERABLES Final Result Performing Organization Address [facility] Co de Phone Number [facility] [place] [address] * Ferritin (08/04/2024 8:43 AM CDT) Ferritin 64 13 - 150 ng/mL Blood 08/04/2024 8:43 AM CDT 08/04/2024 11:55 AM CDT Maddy Penny FREIGHT ELEVATOR OPERATOR LAB BLOOD ORDERABLES Final Result Performing Organization Address [facility] de Phone Number [facility] [place] [address] * Vitamin B12 (08/04/2024 8:43 AM CDT) Vitamin B12 490 230 - 1,250 pg/mL Blood 08/04/2024 8:43 AM CDT 08/04/2024 11:55 AM CDT Maddy Penny FREIGHT ELEVATOR OPERATOR LAB BLOOD ORDERABLES Final Result Performing Organization Address [facility] [place] [address] from Last 3 Months Insurance [facility] ACCESS [employer] [place] [address] BLUE ACCESS [employer] Advance Directives For more information, please contact: [phone] * Full Code (Latest Code Status on File) Date Activated Date Inactivated Comments 10/12/2018 5:15 PM 10/15/2018 9:28 PM Care Teams Lap Machine Operator Relationship Specialty Start Date End Date Jaiden Carrasco MD [address] [address] PCP - General Family Medicine 02/09/19 Sergio Fair MD [address] [address] Referring Physician Neurosurgery 12/07/19 Natalie Sanchez NP [address] [address] Nurse Practitioner Family Medicine 05/10/21 Odalys De La Torre, [place] [address] [place] [address] Optometry 01/15/22 [place] [address] [place] [address] Consulting Physician Neurology 01/15/22
--- OUTSIDE RECORDS SUMMARY | 2024-10-06 14:37 | XMS_ITS | Clinical Summary ---
Author Organization [facility] Administrative Offices Address [address] [place] [address] Care Team Providers Care Manager Government Name Role Phone Unavailable Primary Care Provider Unavailabl e Medications ARIPiprazole (ABILIFY) 15 mg tablet Take 15 mg by mouth daily. Active cholecalcifero l 1,250 mcg (50,000 unit) Capsule Take 50,000 Units by mouth every 7 days. 3 Active cyanocobalamin (VITAMIN B-12) 1,000 mcg/mL Solution Inject 1,000 mcg by intramuscular injection every 30 days. 3 Active diazoxide (PROGLYCEM) 50 mg/mL Suspension Take 97.5 mg by mouth every 8 hours. 3 Active DULoxetine (CYMBALTA) 60 mg Capsule, Delayed Release(E.C.) Take 60 mg by mouth 2 times daily. Active eptinezumab-jj mr (VYEPTI) 100 mg/mL Solution Inject 100 mg by intravenous injection every 90 days. Active ondansetron (ZOFRAN) 4 mg Tablet Take 4 mg by mouth every 6 hours as needed for Nausea. 2 Active prochlorperazi ne maleate (COMPAZINE) 10 mg tablet Take 10 mg by mouth every 6 hours as needed for Nausea. Active Active Problems Problem Noted Date Diagnosed Date Psychogenic nonepileptic seizure 12/30/2023 Bilateral occipital neuralgia 08/07/2023 Acquired spondylolisthesis 05/17/2022 Degeneration of lumbosacral intervertebral disc 05/17/2022 Low back pain 05/17/2022 Lumbar radiculopathy 05/17/2022 Right hip pain 05/17/2022 Trochanteric bursitis of right hip 05/17/2022 Convergence insufficiency 01/24/2022 Refractive error 01/24/2022 Abnormal eye movements 11/29/2021 Migraine without aura 07/18/2021 B12 deficiency 05/31/2021 Iron deficiency anemia 05/30/2021 Breast lump 06/22/2020 Hypoglycemia 04/01/2020 Cognitive complaints 03/21/2020 Other fatigue 03/21/2020 Post-traumatic headache 03/21/2020 Subarachnoid hemorrhage 03/21/2020 Traumatic brain injury with loss of consciousnes s 03/21/2020 Panniculitis 05/23/2017 Dysesthesia 02/04/2017 Chronic maxillary sinusitis 12/20/2016 Parotitis 12/20/2016 Facial swelling 08/13/2016 Depression 05/28/2015 H/O gastric bypass 05/28/2015 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 05/28/2015 Encounters Date Type Department Care Team Description 09/23/2024 External Device Data [facility] Provider, Abstract 09/23/2024 External Device Data [facility] Provider, Abstract 09/23/2024 External Device Data [facility] Provider, Abstract 09/23/2024 External Device Data [facility] Provider, Abstract 09/22/2024 External Device Data [facility] Provider, Abstract 09/01/2024 External Device Data [facility] Provider, Abstract 08/04/2024 External Device Data [facility] Provider, Abstract 07/28/2024 External Device Data [facility] Provider, Abstract from Last 3 Months Social History Tobacco Use Types Packs/Day Years Used Date Smoking Tobacco: Never Assessed Comments Unknown Sex and Gender Information Value Date Recorded Sex Assigned at Female 03/18/2024 1:24 PM RISK OFFICER Legal Sex Female 2:56 PM CDT Gender Identity Female 03/18/2024 1:24 PM RISK OFFICER Sexual Orientation Straight 03/18/2024 1: 24 PM RISK OFFICER Plan of Treatment Health Maintenance Due Date Last Done Comments Pre-Diabetes and Diabetes Screening 1975 DTAP/TDAP/TD VACCINES (1 - Tdap) 12/26/1994 HEPATITIS B VACCINES (1 of 3 - 19+ 3-dose series) 12/26/1994 HPV/Cotest (21-29) 12/26/1996 CERVICAL CANCER SCREENING 12/26/2005 HPV/Cotest (30-65) 12/26/2005 PAP SMEAR 12/26/2005 BREAST CANCER SCREENING 2015 COLORECTAL SCREENING 12/26/2020 Colorectal Cancer Screening 12/26/2020 FIT-DNA Q 3 years 12/26/2020 FIT/FOBT Q 1 year 12/26/2020 Flex Sig/CT Colonography Q 5 years 12/26/2020 COVID-19 Vaccine (3 - 2023-2 5 season) 2023 04/13/2020, 03/16/2020 INFLUENZA VACCINE (#1) 2024 , 12/04/2018, 12/04/2018, Additional history exists [facility] [address] [employer] [facility] [place] [address]
--- OUTSIDE RECORDS SUMMARY | 2024-10-06 14:37 | XMS_ITS | Continuity of Care Document ---
Author Name [facility] Address [address] [place] [address] Organization [facility] Care Team Providers Care Roll Icer Machine Name Role Phone [facility] Unavailable Unavailable Allergies, Adverse Reactions, Alerts Substance Category Reaction Severity Reaction type Status Date Reported Comments Source erythromycin Assertion Rash, Difficulty breathing Drug allergy Active [facility] NSAIDS<sup>1 </sup> Assertion Drug allergy Active Patient Comment: S%2FP Gastric Bypass [facility]
--- OUTSIDE RECORDS SUMMARY | 2024-10-06 14:37 | XMS_ITS | Clinical Summary ---
Author Organization [facility] Address [address] [place] [address] Care Team Providers Care Machine Guide Base Winder Name Role Phone Unavailable Primary Care Provider Unavailabl e Immunizations Immunization Administration Dates Next Due MODERNA COVID-19 (12+) MRNA, LNP-S, PF, 100 MCG/ 0.5 ML DOSE 04/13/2020,03/16/2020 Social History Tobacco Use Types Packs/Day Years Used Date Smoking Tobacco: Never Assessed Comments Unknown Sex and Gender Information Value Date Recorded Sex Assigned at Not on file Legal Sex Female 7:40 PM GAMBRELER HELPER Gender Identity Not on file Sexual Orientation [...]
--- OUTSIDE RECORDS SUMMARY | 2024-10-06 14:38 | XMS_ITS | Encounter Summary ---
Author Organization [facility] Healthcare Address [address] [place] [address] Care Team Providers Care Shape Brick Molder Name Role Phone Jaiden Carrasco MD Primary Care Provider [phone] Sergio Fair MD Unavailable Natalie Sanchez NP Unavailable [phone] Odalys De La Torre OD Unavailable [phone] Trey Duncan MD Unavailable Reason for Visit * Reason Onset Date Comments PMC Preprocedure 08/02/2023 Encounter Details Date Type Department Care Team (Late st Contact Info) Description 08/02/2023 Telephone [facility] [address] [facility] [place] [address] [place] [address] Dylan Méndez MD [address] [place] [address] PMC Preprocedure Social History Tobacco Use Types [...] and Family Once a week 10/14/2018 Attends Mormonism Services Never 10/14 Active Member of Clubs [...] on file Legal Sex Female 2:46 PM [employer] Gender Identity Not on file Sexual Orientation Straight 03/18/2020 10 :53 PM [employer] Occupation Industry Job Start Date Job End Date [employer] Not on file Not on file Not [...] on filedocumented in this encounter Care Teams Shape Brick Molder Relationship Specialty Start Date End Date Jaiden Carrasco MD [address] [address] PCP - General Family Medicine 02/09/19 Sergio Fair MD [address] [address] Referring Physician Neurosurgery 12/07/19 Natalie Sanchez NP [address] [address] Nurse Practitioner Family Medicine 05/10/21 [place] [address] [place] [address] Optometry 01/15/22 [place] [address] [place], [place] [id number] Consulting Physician Neurology 01/15/22 documented as of this encounter
--- OUTSIDE RECORDS SUMMARY | 2024-10-06 14:38 | XMS_ITS ---
Author Name RENEE WARNER D.O. Address [address] [place] [address] Phone [phone] [facility] Care Team Providers Care Clamshell Operator Name Role Phone RENEE WARNER Unavailable [phone] Unavailable Unavailable Unavailable Unavailable Unavailable Unavailable Unavailable Unavailable Unavailable Unavailable Unavailable Unavailable Unavailable Unavailable Unavailable Unavailable Unavailable Unavailable Jaiden Carrasco Unavailable [phone] Unavailable Unavailable Unavailable Reason for Referral Not [...] mg Tab TAKE 1 TABLET BY [place] [facility] 3X DAILY NEEDED FOR NAUSEA AND VOMITING *DO NOT TAKE WITH COMPAZINE* 2022-10-09 No Data Available ZOLMitriptan 5 mg Tab 1 tablet orally da nallely as needed, may take second dose at least 2 hours after first dose. 10 mg max daily. 2 days a week max. 2022-10-17 No Data Available Modafinil 200 mg Tab TAKE 1 TABLET BY [place] [facility] IN THE MORNING AND 1/2 (ONE-HALF) AT [...] 300 mg Cap TAKE 1 CAPSULE BY [place] [facility] EVERY 12 HOURS 2023-02-18 No Data Available [...] Service Diagnosis/Co mplaint moderate complexity office visit [facility] 05/06/2023 Chronic migraine wit hout aura, intractable, without status migrainosusOccipital neuralgia low-moderate complexity office visit [facility] 08/06/2023 Chronic migraine wit h aura, not intractable, without status migrainosus low-moderate complexity office visit [facility] 10/23/2023 Chronic migraine wit hout aura, intractable, without status migrainosus high complexity office visit [facility] 12/30/2023 Chronic migraine wit hout aura, intractable, without status migrainosusVisual discomfort, unspecified high complexity office visit [facility] 12/30/2023 Chronic migraine wit hout aura, intractable, without status migrainosusVisual discomfort, unspecified moderate complexity office visit [facility] 02/25/2024 Chronic migraine wit hout aura, intractable, without status migrainosusDeficiency of other specified B group vitamins moderate complexity office visit [facility] 02/25/2024 Chronic migraine wit hout aura, intractable, without status migrainosusDeficiency of other specified B group vitamins moderate complexity office visit [facility] 03/03/2024 Syncope and collapse high complexity office visit [facility] 03/31/2024 Epilepsy, unspecifie d, not intractable, without status epilepticus high complexity office visit [facility] 03/31/2024 Epilepsy, unspecifie d, not intractable, without status epilepticus EEG Rout <40 No sleep [facility] 03/25/2024 Unspec ified convulsions EEG Rout <40 No sleep [facility] 03/25/2024 Unspec ified convulsions moderate complexity office visit [facility] 04/21/2024 Epilepsy, unspecifie d, not intractable, without status epilepticus moderate complexity office visit [facility] 09/23/2024 Epilepsy, unspecifie d, not intractable, [...] Servicing provider Phone# moderate complexity office visit [id number] 2023-05-06 No Data Available No Data Availa ble low-moderate complexity office visit 65412 2023-08-06 No Data Available No Data Availa ble low-moderate complexity office visit 89544 2023-10-23 No Data Available No Data Availa ble high complexity office visit 12156 2023-12-30 No Data Available No Data Availa ble Telephone Supervisor Care [id number] No Data Available No Data Available moderate complexity office visit 33218 2024-02-25 No Data Available No Data Availa ble Long-Term Care [id number] No Data Available No Data Available moderate complexity office visit 02579 2024-03-03 No Data Available No Data Availa ble high complexity office visit 51857 2024-03-31 No Data Available No Data Availa ble Long-Term Care [id number] 2024-03-31 No Data Available No Data Available EEG Rout <40 No sleep 09244 2024-03-25 No Data Available No Data Availa ble EEG Rout <40 Sleep Achieved 72393 2024-03-25 No Data Available No Data Availa ble moderate complexity office visit 97923 2024-04-21 No Data Available No Data Availa ble moderate complexity office visit 26053 2024-09-23 No Data Available No Data Availa ble Relevant diagnostic tests and/or laboratory data Laboratory Results Test Result Units Ref low Ref high Date Location Source INTRINSIC FACTOR BLOCKING AN TIBODY INTRINSIC FACTOR BLOCKING ANTIBODY NEGATIVE No Data Available N/A N/A 2024-02 [facility], [address] [place] [address] Phone: No Data Available METHYLMALONIC ACID AND HOMOC YSTEINE METHYLMALONIC ACID 191 nmol/L 55 335 2024-02 [facility] [address] [address] [place], [place], [place] Phone: No Data Available HOMOCYSTEINE 5.4 umol/L No Data Available 10.4 2024-02 [facility] [id number] [place], [place], [place] Phone: No Data Available THYROID PANEL WITH TSH T3 UPTAKE 24 % 22 35 2024-02 [facility] [place] Phone: No Data Available T4 (THYROXINE), TOTAL 6.1 mcg/dL 5.1 11.9 2024-02 [facility] [address] Phone: No Data Available FREE T4 INDEX (T7) 1.5 No Data Available 1.4 3.8 2024-02 [facility] [address] Phone: No Data Available TSH 0.58 mIU/L N/A N/A 2024-02 [facility] Phone: No Data Available VITAMIN B12 VITAMIN B12 252 pg/mL 200 1100 2024-02 [facility] [address] Phone: No Data Available Functional Status No [...] was conducted via secured, two-way communication through [employer]. Patient located in [place]. Patient expressed consent with video communication to carry out today's visit. Total time of video encounter was 30 + mins that were spent reviewing records, obtaining history, doing a physical exam (via video) as appropriate, documenting in the chart, and any associated orders, all on the day of the visit.Voice dictation software is in use. Lip Reading Teacher variances may occur. Please excuse if any [...] was conducted via secured, two-way communication through [employer]. Patient located in [place]. Patient expressed consent with video communication to carry out today's visit. Total time of video encounter was 20 + mins that were spent reviewing records, obtaining history, doing a physical exam (via video) as appropriate, documenting in the chart, and any associated orders, all on the day of the visit.Voice dictation software is in use. Lip Reading Teacher variances may occur. Please excuse if any [...] was conducted via secured, two-way communication through [employer]. Patient located in [place]. Patient expressed consent with video communication to carry out today's visit. Total time of video encounter was 20 + mins that were spent reviewing records, obtaining history, doing a physical exam (via video) as appropriate, documenting in the chart, and any associated orders, all on the day of the visit.Voice dictation software is in use. Lip Reading Teacher variances may occur. Please excuse if any [...] has a rheumatology appointment on Saturday at [facility]. She notes that she had Vyepti on December 10 and had a repeat nerve block by Dr. Jo (Pain management). Her presentation is consistent with chronic migraine without aura currently in the borderline episodic/chronic range.Virtual Visit: Today's visit was conducted via secured, two-way communication through [employer]. Patient located in [place]. Patient expressed consent with video communication to carry out today's visit. Total time of video encounter was 40 + mins that were spent reviewing records, obtaining history, doing a physical exam (via video) as appropriate, documenting in the chart, and any associated orders, all on the day of the visit.Voice dictation software is in use. Lip Reading Teacher variances may occur. Please excuse if any [...] visit. Voice dictation software is in use. Lip Reading Teacher variances may occur. Please excuse if any [...] accident. She last recalls being at a [employer] food. Apparently her truck went through 1 [...] visit. Voice dictation software is in use. Lip Reading Teacher variances may occur. Please excuse if any [...] and clinical note.NO G Code 2024-03-31 12:00:00 Liitwhmd65 + minutes were spent reviewing records, obtaining history, doing a physical exam as appropriate, documenting in the chart, and any associated orders, all on the day of the visit. Voice dictation software is in use. Lip Reading Teacher variances may occur. Please excuse if any [...] visit. Voice dictation software is in use. Lip Reading Teacher variances may occur. Please excuse if any [...] will refer her to the interventional Pain [place].30 + minutes were spent reviewing records, obtaining history, doing a physical exam as appropriate, documenting in the chart, and any associated orders, all on the day of the visit. Voice dictation software is in use. Lip Reading Teacher variances may occur. Please excuse if any [...] Plans 2023-05-06 06:30:00 [facility] [place] [facility] [place] ([phone]) and at [facility] ([phone])Dr Zaira Mar*Pain & Rehabilitation SpecialistsDr Liudmilaprabhakar [place]*[email or web address] For the occipital neuralgia/neck pain, will refer to pain management for consideration of C2-3 medial branch blocks / facet blocks and/or radiofrequency ablation. 2023-08-06 07:00:00 [facility] [place] [facility] [place] ([phone]) and at [facility] ([phone])Dr Zaira Mar*- RFA as previously discussed- continue [...] memory issues.Go to the pharmacy and get [id number] sublingual B12 at take 1000 mcg daily. [...] with an AED.- discussed primidone 2024-02-25 07:04:10 [[id number]] METHYLMALONI C ACID AND HOMOCYSTEINE 2024-02-25 07:04:10 [...] be used under the supervision of a tea tree farmer and if oral contraceptives are used dosage adjustments may be required due to the use of anti-seizure medications; such adjustments should be made by a tea tree farmer. Inform the clinic in the event of a (unplanned or planned) or if you are planning on trying to become . --Imaging Phone Numberscall to schedule and please let me know if there is any difficulty [facility] Central Scheduling [phone] (preferred)[facility] Central Scheduling [phone] Central Scheduling [phone] [email or web address] Radiology [email or web address] [phone] Upright MRI ([facility]) [address] [place] [address] [facility] ([facility]) [email or web address] awaiting holter monitor- likely rec cardiology- EEG [...] drive by the state (1 year for 28msec). I also instructed the patient to avoid [...] be used under the supervision of a tea tree farmer and if oral contraceptives are used dosage adjustments may be required due to the use of anti-seizure medications; such adjustments should be made by a tea tree farmer. Inform the clinic in the event of [...] drive by the state (1 year for 28msec). I also instructed the patient to avoid [...] 2024-09-23 13:30:00 - refer to [facility] for R FA- continue vyepti 300- continue keppra for Sz
== END ==
LOC: ANHLAB 14:33
PROVIDERS: PCP Nurse Practitioner Family; Visit Provider Plastic Surgery
DX: R22.31 Localized swelling, mass and lump, right upper limb (principal)
CPT/HCPCS: 88305

== ENCOUNTER → 2024-10-20 09:36 | Outpatient (CLI) | payer BC, SELFPAY ==
--- NOTE | ~2024-10-20 | XR_ITS ---
EXAMINATION: XR chest 2V DATE: 10/20/2024 09:47 INDICATION: Encounter for screening for respiratory tuberculosis TECHNIQUE: PA and lateral views of the chest were obtained. COMPARISON: Chest radiograph dated 10/29/2023 FINDINGS: Symmetric nipple shadows project over the bilateral lung bases and anterior seventh ribs. Again seen is a 12 mm nodule at the lateral left midlung zone which corresponds to a calcified granuloma on CT d ated 07/03/2023. The lungs remain otherwise clear with no other airspace opacities, pulmonary edema, p leural effusion or pneumothorax. Cardiomediastinal silhouette is normal. Mild S-shaped curvature of t he thoracic spine. IMPRESSION: 1. No acute cardiopulmonary disease. Reviewed, dictated and finalized at location A.
--- OUTSIDE RECORDS SUMMARY | 2024-10-20 10:12 | XMS_ITS | Encounter Summary ---
Author Organization [facility] Healthcare Address [address] [facility] [address] [address] Care Team Providers Care Dental Practitioner Name Role Phone Jaiden Carrasco MD Primary Care Provider [phone] Sergio Fair MD Unavailable Natalie Sanchez NP Unavailable [phone] Odalys De La Torre OD Unavailable [phone] Trey Duncan MD Unavailable Reason for Visit * Reason Onset Date Comments pre procedure instructions 05/27/2024 Encounter Details Date Type Department Care Team (Late st Contact Info) Description 05/27/[address] [facility] [address] [facility] [place] [facility] [address] [place] [address] Masha Jo MD [address] [place] [address] pre procedure instructions Social History Tobacco Use Types Packs/Day Years Used Date Smoking Tobacco: Former Cigarettes Q uit: 07/18/2005 Passive Smoke Exposure: Past Smokeless Tobacco: Never Alcohol Use Standard Drinks/Week Comments Not Currently 0 (1 standard drink = 0.6 oz pur e alcohol) Social Connection and Isolation Panel Answer Date Recorded Frequency of Communication w ith Friends and Family More than three times a week 10/14/2018 Frequency of Social Gatherin gs with Friends and Family Once a week 10/14/2018 Attends Yazdanism Services Never 10/14 Active Member of Clubs [...] on file 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 [employer] Gender Identity Not on file Sexual Orientation Straight 03/18/2020 10 :53 PM SPINNING LATHE OPERATOR [employer] Occupation Industry Job Start Date Job End Date [employer] Not on file Not on file [...] on filedocumented in this encounter Care Teams Dental Practitioner Relationship Specialty Start Date End Date Jaiden Carrasco MD [email or web address] [address] PCP - General Family Medicine 02/09/19 Sergio Fair MD [address] [address] Referring Physician Neurosurgery 12/07/19 Natalie Sanchez NP [address] [address] Nurse Practitioner Family Medicine 05/10/21 Odalys De La Torre, [address] [address] [place], [place] [id number] Optometry 01/15/22 [place] [address] [place], [place] [id number] Consulting Physician Neurology 01/15/22 documented as of this encounter
--- OUTSIDE RECORDS SUMMARY | 2024-10-20 10:12 | XMS_ITS | Clinical Summary ---
Author Organization [facility] Address [address] [place] [address] Care Team Providers Care Instrumentation Manager Name Role Phone Jaiden Carrasco MD Primary Care Provider [phone] Sergio Fair MD Unavailable Natalie Sanchez NP Unavailable [phone] Odalys De La Torre OD Unavailable [phone] Trey Duncan MD Unavailable [phone] Allergies Active Allergy Reactions Criticality Noted Date [...] 01/24/2022 Assessment & Plan (01/24/2022 3:49 PM BIOINFORMATICS ASSOCIATE): Update computer/near specs with 4BI prism (split). Educated on need to update. Will call with any new/worsening symptoms. Convergence insufficiency 01/24/2022 Assessment & Plan (01/24/2022 3:50 PM BIOINFORMATICS ASSOCIATE): Continue with small base-in prism (BI) prism at near. Abnormal eye movements 11/29/2021 Assessment & Plan (11/29/2021 7:20 AM CDT): Newly detected symptomatic eye movement abnormality of unclear chronicity and recent acuity changes in the setting of moderate TBI 2019, reported by her clinical trial associate; not responsive to prism lenses MRI IAC [...] - 09/23/2024 11:59 PM CDT Hospital Encounter [facility] [address] [place] [address] Masha Jo MD Bilateral occipital neuralgia Discharge Disposition: Discharge to home or self care 09/18/2024 Telephone [facility] [address] [place] [address] Masha Jo MD PMC Preprocedure 08/04/2024 9:30 AM CDT Office Visit [facility] [address] [place] [address] Maddy Penny NP Iron deficiency anemia, unspecified iron deficiency anemia type (Primary Dx); B12 deficiency 08/04/2024 9:00 AM CDT Lab [facility] [address] [place] [address] 08/04/2024 8:45 AM CDT Lab [facility] [address] [place] [address] Iron deficiency anemia, unspecified iron deficiency anemia type 08/04/2024 Orders Only [facility] [address] [place] [address] Dea Nails RN Iron deficiency anemia, unspecified [...] 12/04/2018 Surgical History Surgery Date Site/Laterality Comments AL DELIVERY ONLY Section - (Added by TW [...] and Family Once a week 10/14/2018 Attends [employer] Never 10/14 Active Member of Clubs [...] on file Legal Sex Female 2:46 PM BIOINFORMATICS ASSOCIATE Gender Identity Not on file Sexual Orientation Straight 03/18/2020 10 :53 PM BIOINFORMATICS ASSOCIATE 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 Lymphocyte pct 31.0 % [facility] Comment: Interpretive Data Percent cell count reference ranges are not reported, since discordance with absolute values may lead to misinterpretation of CBC data. Current Interpretive Data was last revised on 2017. Monocyte pct 5.9 % [facility] Comment: Interpretive Data Percent cell count reference ranges are not reported, since discordance with absolute values may lead to misinterpretation of CBC data. Current Interpretive Data was last revised on 2017. Eosinophil pct 8.0 % [facility] Comment: Interpretive Data Percent cell count reference ranges are not reported, since discordance with absolute values may lead to misinterpretation of CBC data. Current Interpretive Data was last revised on 2017. Basophil pct 1.0 % [facility] Comment: Interpretive Data Percent cell count reference ranges are not reported, since discordance with absolute values may lead to misinterpretation of CBC data. Current Interpretive Data was last revised on 2017. Blood 08/04/2024 8:43 AM CDT 08/04/2024 9:17 AM CDT Maddy Penny CONCRETE LABORER LAB BLOOD ORDERABLES Final Result Performing Organization Address City/[facility]/ZIP Co de Phone Number [facility] Department [place] [address] * Iron profile w/ IBC (08/04/2024 8:43 AM CDT) Iron 102 35 - 145 mcg/dL TIBC 314 250 - 400 mcg/dL [facility] Transferrin saturation 32 20 - 50 % [facility] Blood 08/04/2024 8:43 AM CDT 08/04/2024 11:55 AM CDT Maddy Penny CONCRETE LABORER LAB BLOOD ORDERABLES Final Result [facility] Department [place] [address] * (ABNORMAL) CBC with auto differential (08/04/2024 8:43 AM CDT) [facility] WBC 4.90 3.80 - 9.90 K/cumm Comment:Testing performed by : [address] [address] Hgb 12.8 11.9 - 15.5 g/dL [facility] Comment:Testing performed by : [address] [address] Hct 40.3 35.6 - 45.5 % [facility] Comment:Testing performed by : [address] [address] Plt 292 150 - 400 K/cumm [facility] Comment:Testing performed by : [address] [address] MPV 9.2 9.1 - 12.3 fL [facility] RBC 4.07 3.90 - 5.20 M/cumm [facility] MCV 99.0(H) 81.3 - 96.4 fL [facility] MCH 31.4 27.1 - 33.3 pg [facility] MCHC 31.8(L) 32.3 - 35.7 g/dL [facility] RDW CV 12.1 11.1 - 14.9 % [facility] RDW SD 43.9 35.7 - 48.1 fL [facility] NRBC abs 0.00 0.00 - 0.01 K/cumm [facility] Blood 08/04/2024 8:43 AM CDT 08/04/2024 9:17 AM CDT Maddy Penny NP LAB BLOOD ORDERABLES Final Result [facility] Department [place] [address] * Folate (08/04/2024 8:43 AM CDT) [facility] Folic acid 8.0 >=5.0 ng/mL Blood 08/04/2024 8:43 AM CDT 08/04/2024 11:55 AM CDT Maddy Penny CONCRETE LABORER LAB BLOOD ORDERABLES Final Result Performing Organization Address [facility] Co de Phone Number [facility] [place] [address] * Ferritin (08/04/2024 8:43 AM CDT) Ferritin 64 13 - 150 ng/mL Blood 08/04/2024 8:43 AM CDT 08/04/2024 11:55 AM CDT Maddy Penny CONCRETE LABORER LAB BLOOD ORDERABLES Final Result Performing Organization Address [facility] Phone Number [facility] [place] [address] * Vitamin B12 (08/04/2024 8:43 AM CDT) Pathologist [facility] Vitamin B12 490 230 - 1,250 pg/mL Blood 08/04/2024 8:43 AM CDT 08/04/2024 11:55 AM CDT Maddy Penny CONCRETE LABORER LAB BLOOD ORDERABLES Final Result Performing Organization Address [facility] Phone Number [facility] [place] [address] from Last 3 Months Insurance [facility] ACCESS BLUE ACCESS OOS BLUE ACCESS OOS BLUE ACCESS OOS Advance Directives For more information, please contact: [phone] * Full Code (Latest Code Status on File) Date Activated Date Inactivated Comments 10/12/2018 5:15 PM 10/15/2018 9:28 PM Care Teams Instrumentation Manager Relationship Specialty Start Date End Date Jaiden Carrasco MD [address] [address] PCP - General Family Medicine 02/09/19 Sergio Fair MD [address] [address] Referring Physician Neurosurgery 12/07/19 Natalie Sanchez NP [address] [address] Nurse Practitioner Family Medicine 05/10/21 Odalys De La Torre, JUANCARLOS [address] [place], [place] [id number] Optometry 01/15/22 [place] [address] [place] [address] Consulting Physician Neurology 01/15/22
--- OUTSIDE RECORDS SUMMARY | 2024-10-20 10:14 | XMS_ITS | Clinical Summary ---
Author Organization [facility] Address [address] [place] [address] Care Team Providers Care Nib Finisher Name Role Phone Augusto Kim MD Primary Care Provider [phone] Source Comments [facility],non-owned Affiliates and Associated Physician Practices is amultiple site organization consisting of ambulatory clinics and hospital sitesin [place], [place], [place] and [place]. This disclosure is being madepursuant to the Care Everywhere program and may not contain all information available regarding this patient. 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 Gender Identity Not on file Sexual Orientation [...] of 3 - 19+ 3-dose series) 12/26/1994 PAP SMEAR 12/26/1996 COVID-19 VACCINE ( - 2023-2 5 season) [...] age to complete this topic Insurance [facility] SELF PAY NO INSURANCE Member Subscriber Plan / Payer (Ef fective for All Dates) Name:Ashley Us Member ID:Not on file Relation to Subscriber:Not on file Name:ASHLEY US Subscriber ID:Not on file (Home) Address: [place] [address] Payer ID:Not on file Group ID:Not on file Type:Self Pay Address: [place], [place] Advance Directives * Full Code (Latest Code Status on File) Date Activated Date Inactivated Comments 05/28/2015 12:30 AM 05/28/2015 7:14 PM Care Teams Nib Finisher Relationship Specialty Start Date End Date Augusto Kim MD [address] [place] [address] PCP - General Family Medicine 05/27/15
--- OUTSIDE RECORDS SUMMARY | 2024-10-20 10:14 | XMS_ITS | Clinical Summary ---
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
--- OUTSIDE RECORDS SUMMARY | 2024-10-20 10:14 | XMS_ITS | Continuity of Care Document ---
Author Name [facility] Address [address] [place] [address] Organization [facility] Care Team Providers Care Suppression Crew Leader Name Role Phone [facility] Unavailable Unavailable Allergies, Adverse Reactions, Alerts Substance Category Reaction Severity Reaction type Status Date Reported Comments Source erythromycin Assertion Rash, Difficulty breathing Drug allergy Active [facility] NSAIDS<sup>1 </sup> Assertion Drug allergy Active Patient Comment: S%2FP Gastric Bypass [facility]
--- OUTSIDE RECORDS SUMMARY | 2024-10-20 10:15 | XMS_ITS ---
Author Name RENEE WARNER D.O. Address [address] [place] [address] Phone [phone] [facility] Care Team Providers Care Candy Supervisor Name Role Phone RENEE WARNER Unavailable [phone] Unavailable Unavailable Unavailable Unavailable Unavailable Unavailable Unavailable Unavailable Unavailable Unavailable Unavailable Unavailable Unavailable Unavailable Unavailable Unavailable Unavailable Unavailable Jaiden Carrasco Unavailable [phone] Unavailable Unavailable Unavailable Reason for Referral Not [...] mg Tab TAKE 1 TABLET BY [place] [facility] 3X DAILY NEEDED FOR NAUSEA AND VOMITING *DO NOT TAKE WITH COMPAZINE* 2022-10-09 No Data Available ZOLMitriptan 5 mg Tab 1 tablet orally da nallely as needed, may take second dose at least 2 hours after first dose. 10 mg max daily. 2 days a week max. 2022-10-17 No Data Available Modafinil 200 mg Tab TAKE 1 TABLET BY [place] [facility] IN THE MORNING AND 1/2 [...] Cap TAKE 1 CAPSULE BY [place] [facility] EVERY 12 HOURS 2023-02-18 No Data Available [...] Service Diagnosis/Co mplaint moderate complexity office visit [facility] 05/06/2023 Chronic migraine wit hout aura, intractable, without status migrainosusOccipital neuralgia low-moderate complexity office visit [facility] 08/06/2023 Chronic migraine wit h aura, not intractable, without status migrainosus low-moderate complexity office visit [facility] 10/23/2023 Chronic migraine wit hout aura, intractable, without status migrainosus high complexity office visit [facility] 12/30/2023 Chronic migraine wit hout aura, intractable, without status migrainosusVisual discomfort, unspecified high complexity office visit [facility] 12/30/2023 Chronic migraine wit hout aura, intractable, without status migrainosusVisual discomfort, unspecified moderate complexity office visit [facility] 02/25/2024 Chronic migraine wit hout aura, intractable, without status migrainosusDeficiency of other specified B group vitamins moderate complexity office visit [facility] 02/25/2024 Chronic migraine wit hout aura, intractable, without status migrainosusDeficiency of other specified B group vitamins moderate complexity office visit [facility] 03/03/2024 Syncope and collapse high complexity office visit [facility] 03/31/2024 Epilepsy, unspecifie d, not intractable, without status epilepticus high complexity office visit [facility] 03/31/2024 Epilepsy, unspecifie d, not intractable, without status epilepticus EEG Rout <40 No sleep [facility] 03/25/2024 Unspec ified convulsions EEG Rout <40 No sleep [facility] 03/25/2024 Unspec ified convulsions moderate complexity office visit [facility] 04/21/2024 Epilepsy, unspecifie d, not intractable, without [...] Servicing provider Phone# moderate complexity office visit 20518 2023-05-06 No Data Available No Data Availa ble low-moderate complexity office visit 03324 2023-08-06 No Data Available No Data Availa ble low-moderate complexity office visit 40933 2023-10-23 No Data Available No Data Availa ble high complexity office visit 54650 2023-12-30 No Data Available No Data Availa ble Assisted Care [id number] No Data Available No Data Available moderate complexity office visit 62052 2024-02-25 No Data Available No Data 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 ble 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 [id number] No Data Available No Data Available moderate complexity office visit 19099 2024-03-03 No Data Available No Data Availa ble high complexity office visit 11333 2024-03-31 No Data Available No Data Availa ble 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 [id number] 2024-03-31 No Data Available No Data Available EEG Rout <40 No sleep 44751 2024-03-25 No Data Available No Data Availa ble EEG Rout <40 Sleep Achieved 81053 2024-03-25 No Data Available No Data Availa ble moderate complexity office visit 67460 2024-04-21 No Data Available No Data Availa ble moderate complexity office visit 98911 2024-09-23 No Data Available No Data Availa ble Relevant diagnostic tests and/or laboratory data Laboratory Results Test Result Units Ref low Ref high Date Location Source INTRINSIC FACTOR BLOCKING AN TIBODY INTRINSIC FACTOR BLOCKING ANTIBODY NEGATIVE No Data Available N/A N/A 2024-02 [facility], [address] [place] [address] Phone: No Data Available METHYLMALONIC ACID AND HOMOC YSTEINE METHYLMALONIC ACID 191 nmol/L 55 335 2024-02 [facility] [address] [address], [place], [place] Phone: No Data Available HOMOCYSTEINE 5.4 umol/L No Data Available 10.4 2024-02 [facility] [id number], [place], [place] Phone: No Data Available THYROID PANEL WITH TSH T3 UPTAKE 24 % 22 35 2024-02 [facility] [address] Phone: No Data Available T4 (THYROXINE), TOTAL 6.1 mcg/dL 5.1 11.9 2024-02 [facility] [address] Phone: No Data Available FREE T4 INDEX (T7) 1.5 No Data Available 1.4 3.8 2024-02 [facility] [address] Phone: No Data Available TSH 0.58 mIU/L N/A N/A 2024-02 [facility] Phone: No Data Available VITAMIN B12 VITAMIN B12 252 pg/mL 200 1100 2024-02 [facility] [address] Phone: No Data Available Functional Status [...] was conducted via secured, two-way communication through [employer]. Patient located in [place]. Patient expressed consent with video communication to carry out today's visit. Total time of video encounter was 30 + mins that were spent reviewing records, obtaining history, doing a physical exam (via video) as appropriate, documenting in the chart, and any associated orders, all on the day of the visit.Voice dictation software is in use. Pt Escort variances may occur. Please excuse if any [...] was conducted via secured, two-way communication through [employer]. Patient located in [place]. Patient expressed consent with video communication to carry out today's visit. Total time of video encounter was 20 + mins that were spent reviewing records, obtaining history, doing a physical exam (via video) as appropriate, documenting in the chart, and any associated orders, all on the day of the visit.Voice dictation software is in use. Pt Escort variances may occur. Please excuse if any [...] was conducted via secured, two-way communication through [employer]. Patient located in [place]. Patient expressed consent with video communication to carry out today's visit. Total time of video encounter was 20 + mins that were spent reviewing records, obtaining history, doing a physical exam (via video) as appropriate, documenting in the chart, and any associated orders, all on the day of the visit.Voice dictation software is in use. Pt Escort variances may occur. Please excuse if any [...] a rheumatology appointment on Saturday at [facility]. She notes that she had Vyepti on December 10 and had a repeat nerve block by Dr. Jo (Pain management). Her presentation is consistent with chronic migraine without aura currently in the borderline episodic/chronic range.Virtual Visit: Today's visit was conducted via secured, two-way communication through [employer]. Patient located in [place]. Patient expressed consent with video communication to carry out today's visit. Total time of video encounter was 40 + mins that were spent reviewing records, obtaining history, doing a physical exam (via video) as appropriate, documenting in the chart, and any associated orders, all on the day of the visit.Voice dictation software is in use. Pt Escort variances may occur. Please excuse if any [...] visit. Voice dictation software is in use. Pt Escort variances may occur. Please excuse if any [...] accident. She last recalls being at a [employer] food. Apparently her truck went through 1 [...] visit. Voice dictation software is in use. Pt Escort variances may occur. Please excuse if any [...] and clinical note.NO G Code 2024-03-31 12:00:00 [id number] + minutes were spent reviewing records, obtaining history, doing a physical exam as appropriate, documenting in the chart, and any associated orders, all on the day of the visit. Voice dictation software is in use. Pt Escort variances may occur. Please excuse if any [...] visit. Voice dictation software is in use. Pt Escort variances may occur. Please excuse if any [...] will refer her to the interventional Pain [facility].30 + minutes were spent reviewing records, obtaining history, doing a physical exam as appropriate, documenting in the chart, and any associated orders, all on the day of the visit. Voice dictation software is in use. Pt Escort variances may occur. Please excuse if any [...] Plans 2023-05-06 06:30:00 [facility] ([phone]) and at [facility] ([phone])Dr Zaira Mar*Pain & Rehabilitation SpecialistsDr Liudmilaprabhakar [place]*[email or web address] For the occipital neuralgia/neck pain, will refer to pain management for consideration of C2-3 medial branch blocks / facet blocks and/or radiofrequency ablation. 2023-08-06 07:00:00 [facility] [place] ([phone]) and at [facility] ([phone])Dr Zaira Mar*- RFA as previously discussed- continue [...] memory issues.Go to the pharmacy and get [id number] sublingual B12 at take 1000 mcg daily. [...] with an AED.- discussed primidone 2024-02-25 07:04:10 [[id number]] METHYLMALONI C ACID AND HOMOCYSTEINE 2024-02-25 07:04:10 [...] be used under the supervision of a color laboratory technician and if oral contraceptives are used dosage adjustments may be required due to the use of anti-seizure medications; such adjustments should be made by a color laboratory technician. Inform the clinic in the event of a (unplanned or planned) or if you are planning on trying to become . --Imaging Phone Numberscall to schedule and please let me know if there is any difficulty [facility] Central Scheduling [phone] (preferred)[facility] Central Scheduling [phone] Central Scheduling [phone] Imaging [email or web address] Radiology [email or web address] [phone] Upright MRI ([facility]) [address] [place] [address] [facility] ([facility]) [email or web address] awaiting holter monitor- likely rec cardiology- EEG [...] drive by the state (1 year for [email or web address]). I also instructed the patient to avoid [...] be used under the supervision of a color laboratory technician and if oral contraceptives are used dosage adjustments may be required due to the use of anti-seizure medications; such adjustments should be made by a color laboratory technician. Inform the clinic in the event of [...] drive by the state (1 year for [email or web address]). I also instructed the patient to avoid [...]
--- OUTSIDE RECORDS SUMMARY | 2024-10-20 10:15 | XMS_ITS | Encounter Summary ---
Author Organization [facility] Healthcare Address [address] [place] [address] Care Team Providers Care Journal Clerk Name Role Phone Jaiden Carrasco MD Primary Care Provider [phone] Sergio Fair MD Unavailable [phone] Natalie Sanchez NP Unavailable [phone] Odalys De La Torre OD Unavailable [phone] Trey Duncan MD Unavailable [phone] Reason for Visit * Reason Onset Date Comments PMC Preprocedure 08/02/2023 Encounter Details Date Type Department Care Team (Late st Contact Info) Description 08/02/2023 Telephone [facility] [address] [facility] [place] [address] Dylan Mnédez MD [address] [place] [address] PMC Preprocedure Social History Tobacco Use Types [...] and Family Once a week 10/14/2018 Attends [employer] Services Never 10/14 Active Member of Clubs [...] on file Legal Sex Female 2:46 PM DIRECTOR WORK Gender Identity Not on file Sexual Orientation Straight 03/18/2020 10 :53 PM DIRECTOR WORK 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 Author CCM Chronic Pain Care Plan Chronic Care Management Improving( 8:09 AM CDT) Lenora Blair, CECILIO Note: Problem: Chronic Pain Goals: 1. Minimize further functional decline 2. Maximize quality of life 3. Control pain Strategies: - Activity/exercise program recommendation - Conservative stepwise pain medicine strategy with multi-disciplinary approach - Recommend healthy lifestyle strategies and compensatory methods as needed documented as of this encounter Visit Diagnoses Not on filedocumented in this encounter Care Teams Journal Clerk Relationship Specialty Start Date End Date Jaiden Carrasco MD [address] [address] PCP - General Family Medicine 02/09/19 Sergio Fair MD [address] [address] Referring Physician Neurosurgery 12/07/19 Natalie Sanchez NP [address] [address] Nurse Practitioner Family Medicine 05/10/21 [place] [address] [place], [place] [id number] Optometry 01/15/22 [place] [address] [place] [address] Consulting Physician Neurology 01/15/22 documented as of this encounter
== END ==
PROVIDERS: PCP Family Medicine; Visit Provider Family Medicine
DX: Z11.1 Encounter for screening for respiratory tuberculosis (principal)
CPT/HCPCS: 71046